=== PATIENT | female | born 1985 | race African-American/Black ===

== ENCOUNTER 2017-03-14 10:59 | Emergency (ER) | payer SELFPAY | END 2017-03-14 11:20 | disposition home or self-care (01) | LOC: MADERS 10:59 | DX: K04.7 Periapical abscess without sinus (principal); K21.9 Gastro-esophageal reflux disease without esophagitis; F17.210 Nicotine dependence, cigarettes, uncomplicated | CPT/HCPCS: 99282 ==

== ENCOUNTER 2017-03-31 11:20 | Emergency (ER) | payer SELFPAY ==
[2017-03-31] MEDS ORDERED: AMOXicillin 250 MG CAP ONE (12:05)
[2017-03-31] MEDS ORDERED: Ondansetron ODT 4 MG TAB ONE (12:05)
[2017-03-31] MEDS ORDERED: Ibuprofen 800 MG TAB ONE (12:05)
[2017-03-31] MEDS ORDERED: HYDROcodone/Acetaminophen 5/325 mg Tablet ONE (12:05)
== END 2017-03-31 12:20 | disposition home or self-care (01) ==
LOC: MADERS 11:20
DX: K04.7 Periapical abscess without sinus (principal); M27.2 Inflammatory conditions of jaws; K02.9 Dental caries, unspecified; K21.9 Gastro-esophageal reflux disease without esophagitis; F17.210 Nicotine dependence, cigarettes, uncomplicated
CPT/HCPCS: 99282; Q0162

== ENCOUNTER 2017-06-09 09:49 | Emergency (ER) | payer SELFPAY ==
[2017-06-09] MEDS ORDERED: Lidocaine 1% 20 ML MDV ONE (10:11)
[2017-06-09] MEDS ORDERED: cefTRIAXone\\ROCEPHIN 1 GM VIAL ONE (10:11)
[2017-06-09] MEDS ORDERED: Ketorolac Tromethamine 60 MG/2 ML VIAL ONE (10:11)
== END 2017-06-09 10:40 | disposition home or self-care (01) ==
LOC: MADERS 09:49
DX: K04.7 Periapical abscess without sinus (principal); K03.81 Cracked tooth; K21.9 Gastro-esophageal reflux disease without esophagitis; F17.210 Nicotine dependence, cigarettes, uncomplicated
CPT/HCPCS: 96372; J0696; J1885; J2001

== ENCOUNTER 2017-07-21 07:05 | Emergency (ER) | payer SELFPAY ==
[2017-07-21] MEDS ORDERED: Ketorolac Tromethamine 30 MG/ML VIAL ONE (07:33)
--- NOTE | 2017-07-21 07:57 | RAD ---
CHEST PA AND LATERAL: HISTORY: A 31-year-old female with chest pain. COMPARISON: 07/11/15. FINDINGS: Heart size is normal. The lungs are clear. IMPRESSION: No acute intrathoracic disease. POS: [facility]
[2017-07-21 08:23] LABS: BHCG - Serum Negative (NEGATIVE); Pregs Control Background? CLEAR/WHITE (CLR/WHITE); Pregs Control Bar Appear? YES (CONTROL BAR)
== END 2017-07-21 08:10 | disposition home or self-care (01) ==
LOC: MADERS 07:05
DX: S16.1XXA Strain of muscle, fascia and tendon at neck level, initial encounter (principal); M62.838 Other muscle spasm; K21.9 Gastro-esophageal reflux disease without esophagitis; X58.XXXA Exposure to other specified factors, initial encounter
CPT/HCPCS: 71020; 84703; 93005; 96374; J1885

== ENCOUNTER 2017-08-27 09:17 | Emergency (ER) | payer SELFPAY ==
[2017-08-27] MEDS ORDERED: Naproxen 500 MG TAB ONE (09:51)
[2017-08-27] MEDS ORDERED: HYDROcodone/Acetaminophen 10/325 mg Tablet ONE (09:51)
[2017-08-27] MEDS ORDERED: Diazepam 5 MG TAB ONE (09:51)
== END 2017-08-27 10:55 | disposition home or self-care (01) ==
LOC: MADERS 09:17
DX: M62.838 Other muscle spasm (principal); K21.9 Gastro-esophageal reflux disease without esophagitis; F17.210 Nicotine dependence, cigarettes, uncomplicated
CPT/HCPCS: 99283

== ENCOUNTER 2017-10-13 10:31 | Emergency (ER) | payer SELFPAY ==
[~2017-10-13 10:31] MED LIST: Sodium Chloride 0.9% 1,000 ML BAG ONE
[2017-10-13] MEDS ORDERED: Ondansetron HCl/PF 4 MG/2 ML Vial ONE (10:53)
[2017-10-13 11:12] LABS: Amphetamine Not Detected (NotDetected); Barbiturates Screen Not Detected (NotDetected); Benzodiazepine Screen Not Detected (NotDetected); Cocaine Metabolite Screen Not Detected (NotDetected); Medtox Control Line Valid? VALID (VALID); Methadone Not Detected (NotDetected); Methamphetamine Not Detected (NotDetected); Opiate Screen Not Detected (NotDetected); Oxycodone Screen Not Detected (NotDetected); Phencyclidine (PCP) Not Detected (NotDetected); THC/Cannabinoid Screen Not Detected (NotDetected); Tricyclic Screen Not Detected (NotDetected)
== END 2017-10-13 11:15 | disposition home or self-care (01) ==
LOC: MADERS 10:31
DX: Z53.21 Procedure and treatment not carried out due to patient leaving prior to being seen by health care provider (principal)
CPT/HCPCS: 80306; J2405; J7050

== ENCOUNTER 2017-10-13 11:40 | Emergency (ER) | payer SELFPAY ==
[2017-10-13] MEDS ORDERED: Ondansetron HCl/PF 4 MG/2 ML Vial ONE (12:07)
[2017-10-13 12:36] LABS: Pregnancy Test - Urine (BHCG) Negative (Negative); Pregu Control Background? CLEAR/WHITE (CLR/WHITE); Pregu Control Bar Appear? YES (CONTROL BAR); Specific Gravity 1.032 (1.002-1.036)
[2017-10-13 12:50] LABS: Hemoglobin 13.7 g/dL (12.0-16.0); Lymphocytes 11 % (21-51); MDiff Complete? YES; Mean Corpuscular HGB CONC 32.1 g/dL (32.0-36.0); Mean Corpuscular Hemoglobin 31.3 pg (27.0-31.0); Mean Corpuscular Volume 97.6 fl (81.0-99.0); Mean Platelet Volume 6.6 fL (7.4-10.4); Monocytes 2 % (0-10); Neutrophil 87 % (42-75); PLT Morphology Comment Appears Adequate; Platelet Count 302 thou/uL (130-400); RBC Distribution Width 14.7 % (11.5-14.5); Red Blood Cell (RBC) Count 4.36 mill/uL (4.20-5.40); White Blood Cell (WBC) Count 13.1 thou/uL (4.8-10.8)
[2017-10-13] MEDS ORDERED: Metoclopramide HCl 10 MG/2 ML VIAL ONE (12:55)
[2017-10-13] MEDS ORDERED: diphenhydrAMINE 50 MG/ML VIAL ONE (12:55)
[2017-10-13 12:57] LABS: ALT (SGPT) 19 U/L (8-55); AST (SGOT) 19 U/L (5-34); Albumin 4.8 g/dL (3.5-5.0); Alkaline Phosphatase 73 U/L (40-150); Anion Gap 21 mmol/L (10-20); BUN (Urea Nitrogen) 8 mg/dL (7.0-18.7); Bilirubin, Total 0.6 mg/dL (0.2-1.2); Calc. Creatinine Clearance 0 mL/min (70-130); Calcium 10.2 mg/dL (7.8-10.44); Carbon Dioxide 23 mmol/L (22-29); Chloride 107 mmol/L (98-107); Estimated GFR-MDRD Greater than 90; Globulin 3.8 g/dL (2.4-3.5); Glucose 131 mg/dL (70-105); Lipase 12 U/L (8-78); Potassium 3.8 mmol/L (3.5-5.1); Protein, Total 8.6 g/dL (6.0-8.3); Sodium 147 mmol/L (136-145)
[2017-10-13 12:58] LABS: CKMB 0.9 ng/mL (0-6.6); Troponin I Less than 0.010 ng/mL (< 0.028)
== END 2017-10-13 14:00 | disposition home or self-care (01) ==
LOC: MADERS 11:40
DX: R11.2 Nausea with vomiting, unspecified (principal); K21.9 Gastro-esophageal reflux disease without esophagitis; F17.210 Nicotine dependence, cigarettes, uncomplicated
CPT/HCPCS: 36415; 80053; 81025; 82553; 83690; 84443; 84484; 85025; 93005; 96361; 96374; 96375; J1200; J2405; J2765; J7050

== ENCOUNTER 2017-10-15 05:03 | Emergency (ER) | payer SELFPAY ==
[2017-10-15] MEDS ORDERED: Promethazine HCl 25 MG/ML VIAL ONE (05:42)
[2017-10-15] MEDS ORDERED: Ketorolac Tromethamine 30 MG/ML VIAL ONE (05:42)
[2017-10-15] MEDS ORDERED: Dicyclomine 10 MG CAP ONE (06:07)
[2017-10-15 06:36] LABS: Acetaminophen Less than 6.0 mcg/mL (10.0-30.0); Alcohol Less than 10 mg/dL (Less than 10); Anion Gap 25 mmol/L (10-20); Salicylate Less than 8.0 mg/dL (15.0-30.0)
[2017-10-15 06:49] LABS: ALT (SGPT) 97 U/L (8-55); AST (SGOT) 274 U/L (5-34); Albumin 4.9 g/dL (3.5-5.0); Alkaline Phosphatase 80 U/L (40-150); BUN (Urea Nitrogen) 29 mg/dL (7.0-18.7); Bilirubin, Total 1.1 mg/dL (0.2-1.2); Calc. Creatinine Clearance 0 mL/min (70-130); Calcium 10.2 mg/dL (7.8-10.44); Carbon Dioxide 17 mmol/L (22-29); Chloride 102 mmol/L (98-107); Estimated GFR-MDRD 38; Globulin 4.6 g/dL (2.4-3.5); Glucose 107 mg/dL (70-105); Hemoglobin 15.7 g/dL (12.0-16.0); Mean Corpuscular HGB CONC 32.7 g/dL (32.0-36.0); Mean Corpuscular Hemoglobin 31.4 pg (27.0-31.0); Mean Corpuscular Volume 95.9 fl (81.0-99.0); Mean Platelet Volume 6.4 fL (7.4-10.4); Platelet Count 303 thou/uL (130-400); Potassium 3.8 mmol/L (3.5-5.1); Protein, Total 9.5 g/dL (6.0-8.3); RBC Distribution Width 14.2 % (11.5-14.5); Red Blood Cell (RBC) Count 5.01 mill/uL (4.20-5.40); Sodium 140 mmol/L (136-145)
[2017-10-15 06:49] LABS: Bilirubin Negative (Negative); Blood, Urine Large (Negative); Clarity Cloudy (Clear); Glucose, Urine (Dipstick) Negative (Negative); Leukocyte Negative (Negative); Nitrite Negative (Negative); Protein, Urine (Dipstick) > or equal to 300 mg/dL (Neg-Trace); pH, Urine 5.5 (5.0-9.0)
[2017-10-15 06:50] LABS: Band 6 % (5-11)
[2017-10-15 06:51] LABS: Lymphocytes 11 % (21-51); Monocytes 3 % (0-10); Neutrophil 80 % (42-75)
[2017-10-15 07:14] LABS: Amphetamine Not Detected (NotDetected); Bacteria/HPF 3+ HPF (None Seen); Barbiturates Screen Not Detected (NotDetected); Benzodiazepine Screen Not Detected (NotDetected); Cocaine Metabolite Screen Not Detected (NotDetected); Hyaline Casts/LPF 7-10 HYALINE CAST LPF (0-3 Hyaline); Medtox Control Line Valid? VALID (VALID); Methadone Not Detected (NotDetected); Methamphetamine Detected (NotDetected); Opiate Screen Not Detected (NotDetected); Oxycodone Screen Not Detected (NotDetected); Phencyclidine (PCP) Not Detected (NotDetected); RBC/HPF GREATER THAN 50-TNTC HPF (0-3); THC/Cannabinoid Screen Not Detected (NotDetected); Tricyclic Screen Not Detected (NotDetected); WBC/HPF 21-50 HPF (0-3)
[2017-10-15] MEDS ORDERED: Sodium Chloride 0.9% 1,000 ML BAG ONE (07:25)
[2017-10-15] MEDS ORDERED: Sulfameth/Trimethoprim DS 800-160mg TAB ONE (07:52)
== END 2017-10-15 08:00 | disposition home or self-care (01) ==
LOC: MADERS 05:03
DX: E86.0 Dehydration (principal); N39.0 Urinary tract infection, site not specified; K21.9 Gastro-esophageal reflux disease without esophagitis; F17.210 Nicotine dependence, cigarettes, uncomplicated; Z79.899 Other long term (current) drug therapy
CPT/HCPCS: 36415; 80053; 80306; 80307; 81001; 83605; 85025; 87086; 93005; 96361; 96374; 96375; J1885; J2550; J7050

== ENCOUNTER 2017-10-17 17:13 | Emergency (ER) | payer SELFPAY ==
[2017-10-17] MEDS ORDERED: Dexamethasone 4 MG TAB ONE (18:43)
[2017-10-17] MEDS ORDERED: Ibuprofen 800 MG TAB ONE (18:43)
[2017-10-17] MEDS ORDERED: HYDROcodone/Acetaminophen 5/325 mg Tablet ONE (18:43)
--- NOTE | 2017-10-17 20:08 | RAD ---
LEFT KNEE RADIOGRAPHS FOUR VIEWS 10/17/17 PROVIDED CLINICAL HISTORY: Left knee pain. FINDINGS: There is no evidence for fracture or other acute osseous abnormality. If there is persistent clinical concern, conservative management and followup imaging are advised. IMPRESSION: As above. POS: [facility]
== END 2017-10-17 18:55 | disposition home or self-care (01) ==
LOC: MADERS 17:13
DX: S89.92XA Unspecified injury of left lower leg, initial encounter (principal); K21.9 Gastro-esophageal reflux disease without esophagitis; F17.210 Nicotine dependence, cigarettes, uncomplicated; Z79.899 Other long term (current) drug therapy; X50.1XXA Overexertion from prolonged static or awkward postures, initial encounter; Y93.01 Activity, walking, marching and hiking
CPT/HCPCS: J8540

== ENCOUNTER 2017-11-30 00:57 | Emergency (ER) | payer SELFPAY | END 2017-11-30 01:31 | disposition home or self-care (01) | LOC: MADERS 00:57 | DX: J20.9 Acute bronchitis, unspecified (principal); K21.9 Gastro-esophageal reflux disease without esophagitis; F17.210 Nicotine dependence, cigarettes, uncomplicated | CPT/HCPCS: 99283 ==

== ENCOUNTER 2018-01-18 13:03 | Emergency (ER) | payer SELFPAY ==
[2018-01-18] MEDS ORDERED: Aspirin 325 MG TAB ONE (14:00)
[2018-01-18 14:05] LABS: Amphetamine Not Detected (NotDetected); Barbiturates Screen Not Detected (NotDetected); Benzodiazepine Screen Detected (NotDetected); Cocaine Metabolite Screen Not Detected (NotDetected); Medtox Control Line Valid? VALID (VALID); Methadone Not Detected (NotDetected); Methamphetamine Not Detected (NotDetected); Opiate Screen Not Detected (NotDetected); Oxycodone Screen Not Detected (NotDetected); Phencyclidine (PCP) Not Detected (NotDetected); THC/Cannabinoid Screen Not Detected (NotDetected); Tricyclic Screen Not Detected (NotDetected)
[2018-01-18 14:07] LABS: Bilirubin Negative (Negative); Blood, Urine Negative (Negative); Clarity Clear (Clear); Glucose, Urine (Dipstick) Negative (Negative); Leukocyte Negative (Negative); Nitrite Negative (Negative); Protein, Urine (Dipstick) 100 mg/dL (Neg-Trace); Urobilinogen 0.2 mg/dL (0.2-1.0)
[2018-01-18 14:08] LABS: Bacteria/HPF None Seen HPF (None Seen); Other Microscopic Description C&S SET UP; RBC/HPF 0-3 HPF (0-3); Squamous Epithelial 0-3 HPF (0-3)
[2018-01-18 14:22] LABS: Band 2 % (5-11); Hemoglobin 12.7 g/dL (12.0-16.0); Lymphocytes 24 % (21-51); MDiff Complete? YES; Mean Corpuscular HGB CONC 31.6 g/dL (32.0-36.0); Mean Corpuscular Hemoglobin 30.2 pg (27.0-31.0); Mean Corpuscular Volume 95.7 fl (81.0-99.0); Mean Platelet Volume 5.8 fL (7.4-10.4); Monocytes 3 % (0-10); Neutrophil 71 % (42-75); Platelet Count 363 thou/uL (130-400); RBC Distribution Width 15.7 % (11.5-14.5); Red Blood Cell (RBC) Count 4.21 mill/uL (4.20-5.40); White Blood Cell (WBC) Count 11.4 thou/uL (4.8-10.8)
[2018-01-18 14:35] LABS: CKMB 0.6 ng/mL (0-6.6); Troponin I Less than 0.010 ng/mL (< 0.028)
[2018-01-18 14:39] LABS: ALT (SGPT) 11 U/L (8-55); AST (SGOT) 16 U/L (5-34); Acetaminophen Less than 6.0 mcg/mL (10.0-30.0); Albumin 4.4 g/dL (3.5-5.0); Alcohol Less than 10 mg/dL (Less than 10); Alkaline Phosphatase 64 U/L (40-150); Anion Gap 16 mmol/L (10-20); BUN (Urea Nitrogen) 8 mg/dL (7.0-18.7); Bilirubin, Total 0.9 mg/dL (0.2-1.2); CK (CPK) 83 U/L (29-168); Calc. Creatinine Clearance 0 mL/min (70-130); Calcium 9.6 mg/dL (7.8-10.44); Carbon Dioxide 21 mmol/L (22-29); Chloride 107 mmol/L (98-107); Estimated GFR-MDRD Greater than 90; Globulin 3.2 g/dL (2.4-3.5); Glucose 143 mg/dL (70-105); Protein, Total 7.6 g/dL (6.0-8.3); Salicylate Less than 8.0 mg/dL (15.0-30.0); Sodium 140 mmol/L (136-145)
--- NOTE | 2018-01-18 14:59 | RAD ---
AP VIEW CHEST: 01/18/2018 HISTORY: Altered mental status. COMPARISON: 07/11/2015 FINDINGS: AP view chest demonstrates the lungs to be well aerated. No evidence of active intrathoracic disease is seen. No evidence of effusions, pneumonia, or pneumothorax is seen. IMPRESSION: Unremarkable AP view chest. POS: [facility]
[2018-01-18] MEDS ORDERED: Ondansetron HCl/PF 4 MG/2 ML Vial ONE (17:17)
== END 2018-01-18 18:08 | disposition home or self-care (01) ==
LOC: MADERS 13:03
DX: E86.0 Dehydration (principal); N39.0 Urinary tract infection, site not specified; K21.9 Gastro-esophageal reflux disease without esophagitis; F17.210 Nicotine dependence, cigarettes, uncomplicated
CPT/HCPCS: 36415; 71045; 80053; 80306; 80307; 81001; 82553; 83880; 84484; 85025; 86140; 87086; 93005; 94760; 96361; 96374; J2405; J7050

== ENCOUNTER 2018-02-25 03:18 | Emergency (ER) | payer SELFPAY ==
[2018-02-25 04:19] LABS: Bilirubin Small (Negative); Blood, Urine Negative (Negative); Clarity Clear (Clear); Glucose, Urine (Dipstick) Negative (Negative); Leukocyte Negative (Negative); Nitrite Negative (Negative); Pregnancy Test - Urine (BHCG) Negative (Negative); Pregu Control Background? CLEAR/WHITE (CLR/WHITE); Pregu Control Bar Appear? YES (CONTROL BAR); Protein, Urine (Dipstick) 30 mg/dL (Neg-Trace); Specific Gravity 1.025 (1.002-1.036); Specific Gravity, Urine 1.025 (1.005-1.030); Urobilinogen 0.2 mg/dL (0.2-1.0)
[2018-02-25 04:24] LABS: Amphetamine Not Detected (NotDetected); Bacteria/HPF None Seen HPF (None Seen); Barbiturates Screen Not Detected (NotDetected); Benzodiazepine Screen Not Detected (NotDetected); Cocaine Metabolite Screen Not Detected (NotDetected); Medtox Control Line Valid? VALID (VALID); Methadone Not Detected (NotDetected); Methamphetamine Not Detected (NotDetected); Opiate Screen Not Detected (NotDetected); Oxycodone Screen Not Detected (NotDetected); Phencyclidine (PCP) Not Detected (NotDetected); RBC/HPF 0-3 HPF (0-3); Squamous Epithelial 0-3 HPF (0-3); THC/Cannabinoid Screen Not Detected (NotDetected); Tricyclic Screen Not Detected (NotDetected); WBC/HPF 0-3 HPF (0-3)
[2018-02-25 04:25] LABS: Crystals/HPF 3+ CA OXALATE HPF (Negative)
== END 2018-02-25 04:35 | disposition home or self-care (01) ==
LOC: MADERS 03:18
DX: F31.9 Bipolar disorder, unspecified (principal); K21.9 Gastro-esophageal reflux disease without esophagitis; F17.210 Nicotine dependence, cigarettes, uncomplicated; F20.9 Schizophrenia, unspecified
CPT/HCPCS: 80306; 81003; 81015; 81025; 99284

== ENCOUNTER 2018-02-26 13:25 | Emergency (ER) | payer SELFPAY ==
[2018-02-26] MEDS ORDERED: Ibuprofen 600 MG TAB ONE (14:52)
[2018-02-26] MEDS ORDERED: Benzonatate 100 MG CAP ONE (14:52)
== END 2018-02-26 15:03 | disposition home or self-care (01) ==
LOC: MADERS 13:25
DX: S29.012A Strain of muscle and tendon of back wall of thorax, initial encounter (principal); J06.9 Acute upper respiratory infection, unspecified; K21.9 Gastro-esophageal reflux disease without esophagitis; F31.9 Bipolar disorder, unspecified; F20.9 Schizophrenia, unspecified; F17.210 Nicotine dependence, cigarettes, uncomplicated; X58.XXXA Exposure to other specified factors, initial encounter
CPT/HCPCS: 99283

== ENCOUNTER 2018-03-06 15:15 | Emergency (ER) | payer SELFPAY ==
[~2018-03-06 15:15] MED LIST changes: +Iopamidol 370 76% 100 ML VIAL ONE
[2018-03-06] MEDS ORDERED: Ondansetron HCl/PF 4 MG/2 ML Vial ONE (17:11)
[2018-03-06] MEDS ORDERED: Pantoprazole 40 MG VIAL ONE (17:11)
[2018-03-06 17:36] LABS: ALT (SGPT) 16 U/L (8-55); AST (SGOT) 19 U/L (5-34); Albumin 4.5 g/dL (3.5-5.0); Alcohol Less than 10 mg/dL (Less than 10); Alkaline Phosphatase 62 U/L (40-150); Anion Gap 18 mmol/L (10-20); BUN (Urea Nitrogen) 10 mg/dL (7.0-18.7); Bilirubin, Total 0.8 mg/dL (0.2-1.2); CK (CPK) 80 U/L (29-168); Calc. Creatinine Clearance 0 mL/min (70-130); Calcium 9.7 mg/dL (7.8-10.44); Carbon Dioxide 19 mmol/L (22-29); Chloride 108 mmol/L (98-107); Estimated GFR-MDRD 89; Globulin 3.4 g/dL (2.4-3.5); Glucose 126 mg/dL (70-105); Lipase 9 U/L (8-78); Potassium 3.9 mmol/L (3.5-5.1); Protein, Total 7.9 g/dL (6.0-8.3); Sodium 141 mmol/L (136-145)
[2018-03-06 17:40] LABS: Band 5 % (5-11); Hemoglobin 13.8 g/dL (12.0-16.0); Lymphocytes 10 % (21-51); MDiff Complete? YES; Mean Corpuscular HGB CONC 33.5 g/dL (32.0-36.0); Mean Corpuscular Hemoglobin 30.6 pg (27.0-31.0); Mean Corpuscular Volume 91.5 fl (81.0-99.0); Mean Platelet Volume 5.5 fL (7.4-10.4); Monocytes 5 % (0-10); Neutrophil 80 % (42-75); PLT Morphology Comment Appears Adequate; Platelet Count 339 thou/uL (130-400); RBC Distribution Width 15.9 % (11.5-14.5); White Blood Cell (WBC) Count 13.8 thou/uL (4.8-10.8)
[2018-03-06 17:51] LABS: CKMB 0.7 ng/mL (0-6.6); Troponin I Less than 0.010 ng/mL (< 0.028)
[2018-03-06 19:37] LABS: Bilirubin Negative (Negative); Blood, Urine Negative (Negative); Glucose, Urine (Dipstick) Negative (Negative); Leukocyte Negative (Negative); Nitrite Negative (Negative); Protein, Urine (Dipstick) 100 mg/dL (Neg-Trace); Urobilinogen 0.2 mg/dL (0.2-1.0); pH, Urine 5.5 (5.0-9.0)
[2018-03-06 19:39] LABS: Clarity Hazy (Clear); Pregnancy Test - Urine (BHCG) Negative (Negative); Pregu Control Background? CLEAR/WHITE (CLR/WHITE); Pregu Control Bar Appear? YES (CONTROL BAR)
[2018-03-06 19:43] LABS: Bacteria/HPF 2+ HPF (None Seen); RBC/HPF 0-3 HPF (0-3); WBC/HPF 0-3 HPF (0-3)
[2018-03-06 19:58] LABS: Amphetamine Not Detected (NotDetected); Benzodiazepine Screen Not Detected (NotDetected); Cocaine Metabolite Screen Detected (NotDetected); Methadone Not Detected (NotDetected); Methamphetamine Not Detected (NotDetected); Opiate Screen Not Detected (NotDetected); Phencyclidine (PCP) Not Detected (NotDetected); THC/Cannabinoid Screen Not Detected (NotDetected); Tricyclic Screen Not Detected (NotDetected)
[2018-03-06 19:59] LABS: Barbiturates Screen Not Detected (NotDetected); Medtox Control Line Valid? VALID (VALID); Oxycodone Screen Not Detected (NotDetected)
--- NOTE | 2018-03-06 22:07 | CT ---
CT OF ABDOMEN AND PELVIS PERFORMED WITH CONTRAST ENHANCEMENT: 03/06/18 HISTORY: Abdominal pain, elevated white count and lactic acid. History of appendectomy, cholecystectomy and C- section. COMPARISON: 02/10/14 study. The lung bases are clear of any infiltrative process. Liver shows a small hypodensity within the right lobe statistically most likely a tiny cyst. The sple en and pancreas regions are unremarkable. Gallbladder has been removed. There is some slight intrahep atic ductal prominence which is probably related to the cholecystectomy. Right and left adrenal glands and right and left kidneys are normal in size. There is no significant periaortic or mesenteric lymphadenopathy. No signs of bowel obstruction or bowel wall thickening. CT OF PELVIS PERFORMED WITH CONTRAST ENHANCEMENT: Endometrium is thickened. No evidence of adenopathy, mass or free fluid. The appendix is not identifi ed compatible with the history of appendectomy. What appears to be some suture material in the region of the cecum. IMPRESSION: Stable overall examination. Postop cholecystectomy change. No acute intra-abdominal process. POS: [facility]
== END 2018-03-06 21:46 | disposition home or self-care (01) ==
LOC: MADERS 15:15
DX: F14.10 Cocaine abuse, uncomplicated (principal); E86.0 Dehydration; R11.2 Nausea with vomiting, unspecified; F31.9 Bipolar disorder, unspecified; F20.9 Schizophrenia, unspecified; F17.210 Nicotine dependence, cigarettes, uncomplicated; K21.9 Gastro-esophageal reflux disease without esophagitis
CPT/HCPCS: 36415; 74177; 80053; 80306; 80307; 81003; 81015; 81025; 82150; 82553; 83605; 83690; 84484; 85025; 87086; 96361; 96374; C9113; J2405; J7050

== ENCOUNTER 2018-03-08 08:18 | Emergency (ER) | payer SELFPAY ==
[~2018-03-08 08:18] MED LIST changes: -Iopamidol 370 76% 100 ML VIAL ONE; -Sodium Chloride 0.9% 1,000 ML BAG ONE; +Sterile Water 10 ML VIAL ONE
[2018-03-08] MEDS ORDERED: Ziprasidone 20 MG VIAL ONE (08:44)
[2018-03-08 09:09] LABS: Acetaminophen Less than 6.0 mcg/mL (10.0-30.0); Alcohol Less than 10 mg/dL (Less than 10); Lipase 16 U/L (8-78); Salicylate Less than 8.0 mg/dL (15.0-30.0)
[2018-03-08 09:11] LABS: Anion Gap 27 mmol/L (10-20)
[2018-03-08 09:15] LABS: Bilirubin Large (Negative); Blood, Urine Moderate (Negative); Clarity Clear (Clear); Glucose, Urine (Dipstick) Negative (Negative); Leukocyte Negative (Negative); Nitrite Negative (Negative); Protein, Urine (Dipstick) > or equal to 300 mg/dL (Neg-Trace)
[2018-03-08 09:30] LABS: Specific Gravity, Urine 1.037 (1.002-1.036)
[2018-03-08 09:34] LABS: BHCG - Serum Negative (NEGATIVE); Pregs Control Background? CLEAR/WHITE (CLR/WHITE); Pregs Control Bar Appear? YES (CONTROL BAR)
[2018-03-08 09:35] LABS: Amphetamine Not Detected (NotDetected); Barbiturates Screen Not Detected (NotDetected); Benzodiazepine Screen Not Detected (NotDetected); Cocaine Metabolite Screen Not Detected (NotDetected); Medtox Control Line Valid? VALID (VALID); Methadone Not Detected (NotDetected); Methamphetamine Detected (NotDetected); Opiate Screen Not Detected (NotDetected); Oxycodone Screen Not Detected (NotDetected); Phencyclidine (PCP) Not Detected (NotDetected); THC/Cannabinoid Screen Not Detected (NotDetected); Tricyclic Screen Not Detected (NotDetected)
[2018-03-08 09:37] LABS: Hemoglobin 16.9 g/dL (12.0-16.0); Red Blood Cell (RBC) Count 5.75 mill/uL (4.20-5.40); White Blood Cell (WBC) Count 13.4 thou/uL (4.8-10.8)
[2018-03-08 09:38] LABS: #Basophils 0.1 thou/uL (0.0-0.2); #Monocytes 0.8 thou/uL (0.11-0.59); #Neutrophils 10.5 thou/uL (1.40-6.50); %Basophils 0.9 % (0.0-1.0); %Eosinophils 0.1 % (0.0-10.0); %Lymphocytes 14.8 % (21.0-51.0); %Monocytes 5.7 % (0.0-10.0); %Neutrophils 78.5 % (42.0-75.0); Mean Corpuscular HGB CONC 32.4 g/dL (32.0-36.0); Mean Corpuscular Hemoglobin 29.3 pg (27.0-31.0); Mean Corpuscular Volume 90.6 fL (81.0-99.0); Mean Platelet Volume 6.3 fL (7.4-10.4); Platelet Count 359 thou/uL (130-400); RBC Distribution Width 15.7 % (11.5-14.5)
[2018-03-08 09:42] LABS: Albumin 5.8 g/dL (3.5-5.0); BUN (Urea Nitrogen) 19 mg/dL (7.0-18.7); Bilirubin, Total 1.6 mg/dL (0.2-1.2); Calc. Creatinine Clearance 0 mL/min (70-130); Calcium 11.9 mg/dL (7.8-10.44); Carbon Dioxide 16 mmol/L (22-29); Chloride 96 mmol/L (98-107); Estimated GFR-MDRD 34; Glucose 121 mg/dL (70-105); Potassium 3.7 mmol/L (3.5-5.1); Protein, Total 10.8 g/dL (6.0-8.3); Sodium 135 mmol/L (136-145)
[2018-03-08 09:43] LABS: ALT (SGPT) 26 U/L (8-55); AST (SGOT) 26 U/L (5-34); Alkaline Phosphatase 85 U/L (40-150)
== END 2018-03-08 10:29 | disposition left against medical advice (07) ==
LOC: MADERS 08:18
DX: F12.10 Cannabis abuse, uncomplicated (principal); F17.210 Nicotine dependence, cigarettes, uncomplicated; F31.9 Bipolar disorder, unspecified; F20.9 Schizophrenia, unspecified
CPT/HCPCS: 80053; 80306; 80307; 81001; 82150; 83690; 84703; 85025; 85652; 87040; 87086; 96372; A4216; J3486

== ENCOUNTER 2018-03-08 20:09 | Emergency (ER) | payer SELFPAY ==
[~2018-03-08 20:09] MED LIST changes: +Sodium Chloride 0.9% 1,000 ML BAG ONE; -Sterile Water 10 ML VIAL ONE
--- NOTE | 2018-03-08 20:54 | RAD ---
RIGHT ELBOW TWO VIEWS: 03/08/18 HISTORY: Patient thinks a needle broke off in her right elbow. There is no fracture or joint effusion. No radiopaque foreign bodies in the region of the elbow. A sm all radiopaque density in the proximal forearm is probably on the skin surface. IMPRESSION: No evidence of any radiopaque needle. POS: [facility]
[2018-03-08] MEDS ORDERED: Lorazepam 1 MG TAB ONE (21:03)
[2018-03-08] MEDS ORDERED: Haloperidol Lactate 5 MG/ML VIAL ONE (21:04)
[2018-03-08] MEDS ORDERED: Famotidine In NaCl 20 mg/50 ml Premix Bag ONE (21:04)
[2018-03-08] MEDS ORDERED: Ondansetron HCl/PF 4 MG/2 ML Vial ONE (21:04)
[2018-03-08 21:14] LABS: #Basophils 0.2 thou/uL (0.0-0.2); #Monocytes 1.2 thou/uL (0.11-0.59); #Neutrophils 11.9 thou/uL (1.40-6.50); %Basophils 0.9 % (0.0-1.0); %Lymphocytes 18.7 % (21.0-51.0); %Monocytes 7.1 % (0.0-10.0); %Neutrophils 73.3 % (42.0-75.0); Hemoglobin 17.4 g/dL (12.0-16.0); Mean Corpuscular HGB CONC 32.6 g/dL (32.0-36.0); Mean Corpuscular Hemoglobin 29.4 pg (27.0-31.0); Mean Corpuscular Volume 90.3 fl (81.0-99.0); Platelet Count 391 thou/uL (130-400); RBC Distribution Width 15.5 % (11.5-14.5); Red Blood Cell (RBC) Count 5.92 mill/uL (4.20-5.40); White Blood Cell (WBC) Count 16.2 thou/uL (4.8-10.8)
[2018-03-08] MEDS ORDERED: Ziprasidone 20 MG VIAL ONE (21:17)
[2018-03-08] MEDS ORDERED: Sterile Water 10 ML ONE (21:17)
[2018-03-08 21:31] LABS: Acetaminophen Less than 6.0 mcg/mL (10.0-30.0); Alcohol Less than 10 mg/dL (Less than 10); Salicylate Less than 8.0 mg/dL (15.0-30.0)
[2018-03-08 21:44] LABS: Calcium 11.7 mg/dL (7.8-10.44); Potassium 3.9 mmol/L (3.5-5.1)
== END 2018-03-08 22:54 | disposition home or self-care (01) ==
LOC: MADERS 20:09
DX: F14.10 Cocaine abuse, uncomplicated (principal); F12.10 Cannabis abuse, uncomplicated; E86.0 Dehydration; F31.9 Bipolar disorder, unspecified; F20.9 Schizophrenia, unspecified; F17.210 Nicotine dependence, cigarettes, uncomplicated; K21.9 Gastro-esophageal reflux disease without esophagitis
CPT/HCPCS: 36415; 80307; 96372; 96374; 96375; A4216; J1630; J2405; J3486; J7050

== ENCOUNTER 2018-03-10 05:23 | Emergency (ER) | payer SELFPAY ==
[2018-03-10 06:58] LABS: Amphetamine Not Detected (NotDetected); Cocaine Metabolite Screen Not Detected (NotDetected); Methamphetamine Not Detected (NotDetected); Opiate Screen Not Detected (NotDetected); Phencyclidine (PCP) Not Detected (NotDetected); THC/Cannabinoid Screen Not Detected (NotDetected)
[2018-03-10 06:59] LABS: Barbiturates Screen Not Detected (NotDetected); Benzodiazepine Screen Detected (NotDetected); Bilirubin Small (Negative); Blood, Urine Small (Negative); Glucose, Urine (Dipstick) Negative (Negative); Leukocyte Moderate (Negative); Medtox Control Line Valid? VALID (VALID); Methadone Not Detected (NotDetected); Nitrite Negative (Negative); Oxycodone Screen Not Detected (NotDetected); Protein, Urine (Dipstick) 100 mg/dL (Neg-Trace); Specific Gravity, Urine 1.025 (1.005-1.030); Tricyclic Screen Not Detected (NotDetected); Urobilinogen 0.2 mg/dL (0.2-1.0)
[2018-03-10 07:07] LABS: Clarity Hazy (Clear)
[2018-03-10 07:08] LABS: Bacteria/HPF 3+ HPF (None Seen)
[2018-03-10 07:14] LABS: Acetaminophen Less than 6.0 mcg/mL (10.0-30.0); Alcohol Less than 10 mg/dL (Less than 10); Salicylate Less than 8.0 mg/dL (15.0-30.0)
== END 2018-03-10 07:07 | disposition left against medical advice (07) ==
LOC: MADERS 05:23
DX: Z53.21 Procedure and treatment not carried out due to patient leaving prior to being seen by health care provider (principal)
CPT/HCPCS: 36415; 80306; 80307; 81003; 81015

== ENCOUNTER 2018-04-10 13:04 | Emergency (ER) | payer SELFPAY ==
[2018-04-10] MEDS ORDERED: Naproxen 500 MG TAB ONE (14:35)
[2018-04-10] MEDS ORDERED: Ondansetron ODT 4 MG TAB ONE (14:35)
[2018-04-10] MEDS ORDERED: HYDROcodone/Acetaminophen 10/325 mg Tablet ONE (14:35)
== END 2018-04-10 14:48 | disposition home or self-care (01) ==
LOC: MADERS 13:04
DX: T67.5XXA Heat exhaustion, unspecified, initial encounter (principal); F31.9 Bipolar disorder, unspecified; F20.9 Schizophrenia, unspecified; F17.210 Nicotine dependence, cigarettes, uncomplicated; K21.9 Gastro-esophageal reflux disease without esophagitis; X30.XXXA Exposure to excessive natural heat, initial encounter
CPT/HCPCS: 99283; Q0162

== ENCOUNTER 2018-04-13 17:28 | Emergency (ER) | payer SELFPAY ==
[2018-04-13] MEDS ORDERED: HYDROcodone/Acetaminophen 5/325 mg Tablet ONE (17:39)
== END 2018-04-13 17:41 | disposition home or self-care (01) ==
LOC: MADERS 17:28
DX: M54.5 Low back pain (principal); K21.9 Gastro-esophageal reflux disease without esophagitis; F17.210 Nicotine dependence, cigarettes, uncomplicated
CPT/HCPCS: 99283

== ENCOUNTER 2018-04-16 11:10 | Emergency (ER) | payer SELFPAY ==
[2018-04-16] MEDS ORDERED: Ondansetron ODT 4 MG TAB ONE (11:38)
[2018-04-16 12:28] LABS: Bilirubin Negative (Negative); Blood, Urine Negative (Negative); Clarity Clear (Clear); Glucose, Urine (Dipstick) Negative (Negative); Leukocyte Negative (Negative); Nitrite Negative (Negative); Protein, Urine (Dipstick) 100 mg/dL (Neg-Trace); Specific Gravity, Urine 1.025 (1.005-1.030); Urobilinogen 0.2 mg/dL (0.2-1.0)
[2018-04-16 12:33] LABS: Hemoglobin 13.2 g/dL (12.0-16.0); Mean Corpuscular HGB CONC 32.5 g/dL (32.0-36.0); Mean Corpuscular Hemoglobin 30.4 pg (27.0-31.0); Mean Corpuscular Volume 93.7 fl (81.0-99.0); Mean Platelet Volume 5.7 fL (7.4-10.4); Platelet Count 352 thou/uL (130-400); RBC Distribution Width 15.3 % (11.5-14.5); Red Blood Cell (RBC) Count 4.35 mill/uL (4.20-5.40); White Blood Cell (WBC) Count 6.9 thou/uL (4.8-10.8)
[2018-04-16 12:34] LABS: ALT (SGPT) 16 U/L (8-55); AST (SGOT) 22 U/L (5-34); Albumin 4.9 g/dL (3.5-5.0); Alkaline Phosphatase 57 U/L (40-150); Anion Gap 19 mmol/L (10-20); BUN (Urea Nitrogen) 13 mg/dL (7.0-18.7); Bilirubin, Total 0.7 mg/dL (0.2-1.2); Calc. Creatinine Clearance 0 mL/min (70-130); Calcium 10.4 mg/dL (7.8-10.44); Carbon Dioxide 22 mmol/L (22-29); Chloride 105 mmol/L (98-107); Estimated GFR-MDRD 78; Globulin 3.9 g/dL (2.4-3.5); Glucose 108 mg/dL (70-105); Lipase 23 U/L (8-78); Potassium 4.9 mmol/L (3.5-5.1); Protein, Total 8.8 g/dL (6.0-8.3); Sodium 141 mmol/L (136-145)
[2018-04-16 12:36] LABS: CKMB 0.5 ng/mL (0-6.6); Troponin I Less than 0.010 ng/mL (< 0.028)
[2018-04-16 12:44] LABS: Bacteria/HPF Rare-Few HPF (None Seen); RBC/HPF 0-3 HPF (0-3); WBC/HPF 0-3 HPF (0-3)
[2018-04-16 12:56] LABS: Amphetamine Not Detected (NotDetected); Barbiturates Screen Not Detected (NotDetected); Benzodiazepine Screen Not Detected (NotDetected); Cocaine Metabolite Screen Not Detected (NotDetected); Medtox Control Line Valid? VALID (VALID); Methadone Not Detected (NotDetected); Methamphetamine Not Detected (NotDetected); Opiate Screen Not Detected (NotDetected); Oxycodone Screen Not Detected (NotDetected); Phencyclidine (PCP) Not Detected (NotDetected); THC/Cannabinoid Screen Not Detected (NotDetected); Tricyclic Screen Not Detected (NotDetected)
[2018-04-16 13:00] LABS: Anisocytosis SLIGHT = 6-15 cells (100X) (0-5/hpf); Band 1 % (5-11); Eosinophils 1 % (0-10); Lymphocytes 28 % (21-51); MDiff Complete? YES; Manual Diff?? YES; Monocytes 4 % (0-10); Neutrophil 67 % (42-75)
[2018-04-16 13:01] LABS: PLT Morphology Comment Appears Adequate
[2018-04-16] MEDS ORDERED: Pantoprazole 40 MG VIAL ONE (13:21)
[2018-04-16] MEDS ORDERED: Dicyclomine 10 MG CAP ONE (13:31)
[2018-04-16] MEDS ORDERED: Ketorolac Tromethamine 30 MG/ML VIAL ONE (13:31)
[2018-04-16 13:42] LABS: Pregnancy Test - Urine (BHCG) Negative (Negative); Pregu Control Background? CLEAR/WHITE (CLR/WHITE); Pregu Control Bar Appear? YES (CONTROL BAR)
[2018-04-16 13:43] LABS: Specific Gravity 1.025 (1.002-1.036)
== END 2018-04-16 15:17 | disposition home or self-care (01) ==
LOC: MADERS 11:10
DX: N93.8 Other specified abnormal uterine and vaginal bleeding (principal); R11.2 Nausea with vomiting, unspecified; F17.210 Nicotine dependence, cigarettes, uncomplicated; Z79.899 Other long term (current) drug therapy
CPT/HCPCS: 36415; 51701; 80053; 80306; 81003; 81015; 81025; 82553; 83605; 83690; 84484; 85025; 96361; 96374; 96375; A4353; C9113; J1885; J7050; Q0162

== ENCOUNTER 2018-04-17 22:43 | Emergency (ER) | payer SELFPAY ==
[2018-04-17] MEDS ORDERED: Ondansetron HCl/PF 4 MG/2 ML Vial ONE (23:34)
[2018-04-17] MEDS ORDERED: Ketorolac Tromethamine 30 MG/ML VIAL ONE (23:34)
== END 2018-04-17 23:50 | disposition left against medical advice (07) ==
LOC: MADERS 22:43
DX: Z53.21 Procedure and treatment not carried out due to patient leaving prior to being seen by health care provider (principal)
CPT/HCPCS: J1885; J2405

== ENCOUNTER 2018-04-28 16:30 | Emergency (ER) | payer SELFPAY ==
[2018-04-28] MEDS ORDERED: Ibuprofen 800 MG TAB ONE (17:00)
[2018-04-28] MEDS ORDERED: traMADol HCl 50 MG TAB ONE (17:00)
[2018-04-28] MEDS ORDERED: AMOXicillin 250 MG CAP ONE (17:03)
== END 2018-04-28 17:10 | disposition home or self-care (01) ==
LOC: MADERS 16:30
DX: K02.9 Dental caries, unspecified (principal); K21.9 Gastro-esophageal reflux disease without esophagitis; F17.210 Nicotine dependence, cigarettes, uncomplicated; F31.9 Bipolar disorder, unspecified; F20.9 Schizophrenia, unspecified
CPT/HCPCS: 99282

== ENCOUNTER 2018-06-12 15:12 | Emergency (ER) | payer SELFPAY ==
[2018-06-12 15:48] LABS: Bilirubin Negative (Negative); Blood, Urine Large (Negative); Glucose, Urine (Dipstick) Negative (Negative); Leukocyte Negative (Negative); Nitrite Negative (Negative); Protein, Urine (Dipstick) Negative (Neg-Trace); Urobilinogen 0.2 mg/dL (0.2-1.0)
[2018-06-12 15:51] LABS: Bacteria/HPF Rare-Few HPF (None Seen); Clarity Hazy (Clear); Pregnancy Test - Urine (BHCG) Negative (Negative); Pregu Control Background? CLEAR/WHITE (CLR/WHITE); Pregu Control Bar Appear? YES (CONTROL BAR); Squamous Epithelial 0-3 HPF (0-3); WBC/HPF 0-3 HPF (0-3)
[2018-06-12] MEDS ORDERED: HYDROcodone/Acetaminophen 5/325 mg Tablet ONE (16:05)
[2018-06-12] MEDS ORDERED: Ketorolac Tromethamine 60 MG/2 ML VIAL ONE (16:05)
--- NOTE | 2018-06-12 17:04 | CT ---
CT ABDOMEN AND PELVIS NONCONTRAST: HISTORY: Left flank pain. Hematuria. COMPARISON: 03/06/2018 FINDINGS: Each renal collecting system, ureter, and urinary bladder are decompressed without stone evident. La ck of contrast limits evaluation for other abnormalities. The gallbladder is surgically absent. Line ar hyperdensities amongst the bowel in the right lower quadrant are unchanged in appearance and may r epresent postoperative changes. Phleboliths are apparent within the pelvis. No evidence of bowel ob struction. IMPRESSION: No CT evidence of urinary tract obstruction or calcification. POS: [facility]
== END 2018-06-12 16:40 | disposition home or self-care (01) ==
LOC: MADERS 15:12
DX: M54.5 Low back pain (principal); K21.9 Gastro-esophageal reflux disease without esophagitis; F17.210 Nicotine dependence, cigarettes, uncomplicated
CPT/HCPCS: 74176; 81003; 81015; 81025; 96372; J1885

== ENCOUNTER 2018-07-13 12:55 | Emergency (ER) | payer SELFPAY | END 2018-07-13 13:43 | disposition home or self-care (01) | LOC: MADERS 12:55 | DX: M62.830 Muscle spasm of back (principal); F41.9 Anxiety disorder, unspecified; K21.9 Gastro-esophageal reflux disease without esophagitis; F17.210 Nicotine dependence, cigarettes, uncomplicated | CPT/HCPCS: 99283 ==

== ENCOUNTER 2018-07-16 10:19 | Emergency (ER) | payer SELFPAY ==
[2018-07-16] MEDS ORDERED: HYDROcodone/Acetaminophen 10/325 mg Tablet ONE (10:39)
[2018-07-16] MEDS ORDERED: Amoxicillin/Potassium Clav 875 MG TAB ONE (10:40)
[2018-07-16] MEDS ORDERED: predniSONE 20 MG TAB ONE (10:45)
== END 2018-07-16 10:53 | disposition home or self-care (01) ==
LOC: MADERS 10:19
DX: L03.211 Cellulitis of face (principal); L03.213 Periorbital cellulitis; K21.9 Gastro-esophageal reflux disease without esophagitis; F17.210 Nicotine dependence, cigarettes, uncomplicated
CPT/HCPCS: 99283; J7506

== ENCOUNTER 2018-08-09 10:32 | Emergency (ER) | payer SELFPAY ==
[2018-08-09] MEDS ORDERED: predniSONE 20 MG TAB ONE (10:49)
[2018-08-09] MEDS ORDERED: Azithromycin 250 MG TAB ONE (10:49)
== END 2018-08-09 11:00 | disposition home or self-care (01) ==
LOC: MADERS 10:32
DX: J20.9 Acute bronchitis, unspecified (principal)
CPT/HCPCS: 99282; J7506

== ENCOUNTER 2018-08-26 13:59 | Emergency (ER) | payer MEDICAID ==
--- NOTE | 2018-08-26 15:53 | RAD ---
2 VIEW CHEST: Date: 08/26/18 HISTORY: Cough. FINDINGS: Lung pelletier are clear. Heart and mediastinum unremarkable. IMPRESSION: Unremarkable chest. POS: [facility]
== END 2018-08-26 16:01 | disposition home or self-care (01) ==
LOC: MADERS 13:59
DX: J40 Bronchitis, not specified as acute or chronic (principal); F41.9 Anxiety disorder, unspecified; F17.200 Nicotine dependence, unspecified, uncomplicated
CPT/HCPCS: 71046; 87804

== ENCOUNTER 2018-09-23 11:39 | Emergency (ER) | payer MEDICAID, OTHER ==
[2018-09-23] MEDS ORDERED: Sodium Chloride 0.9% 1,000 ML ONE (12:08)
[2018-09-23] MEDS ORDERED: Ketorolac Tromethamine 30 MG/ML VIAL ONE (12:08)
[2018-09-23 12:31] LABS: Anion Gap 20 mmol/L (10-20); BUN (Urea Nitrogen) 20 mg/dL (7.0-18.7); Calc. Creatinine Clearance 0 mL/min (70-130); Calcium 11.2 mg/dL (7.8-10.44); Carbon Dioxide 23 mmol/L (22-29); Chloride 94 mmol/L (98-107); Estimated GFR-MDRD 69; Glucose 68 mg/dL (70-105); Potassium 4.1 mmol/L (3.5-5.1); Sodium 133 mmol/L (136-145)
== END 2018-09-23 13:29 | disposition home or self-care (01) ==
LOC: MADERS 11:39
DX: M54.5 Low back pain (principal); E86.0 Dehydration; F41.9 Anxiety disorder, unspecified; F17.200 Nicotine dependence, unspecified, uncomplicated
CPT/HCPCS: 80048; 96361; 96374; J1885; J7050

== ENCOUNTER 2018-09-24 10:52 | Emergency (ER) | payer OTHER ==
[2018-09-24] MEDS ORDERED: Lorazepam 1 MG TAB ONE (11:30)
== END 2018-09-24 11:45 | disposition home or self-care (01) ==
LOC: MADERS 10:52
DX: F41.0 Panic disorder [episodic paroxysmal anxiety] (principal); F17.210 Nicotine dependence, cigarettes, uncomplicated
CPT/HCPCS: 99283

== ENCOUNTER 2018-10-05 01:54 | Emergency (ER) | payer MEDICAID ==
[2018-10-05] MEDS ORDERED: Midazolam HCl 10 mg/2 ml Vial ONE (02:14)
[2018-10-05] MEDS ORDERED: Sodium Chloride 0.9% 1,000 ML BAG ONE (02:30)
[2018-10-05] MEDS ORDERED: Sodium Chloride 0.9% 100 ML BAG ONE (02:30)
[2018-10-05 02:53] LABS: BHCG - Serum Negative (NEGATIVE); Pregs Control Background? CLEAR/WHITE (CLR/WHITE); Pregs Control Bar Appear? YES (CONTROL BAR)
[2018-10-05 02:54] LABS: Bilirubin Negative (Negative); Blood, Urine Negative (Negative); Clarity Clear (Clear); Glucose, Urine (Dipstick) Negative (Negative); Leukocyte Negative (Negative); Nitrite Negative (Negative); Protein, Urine (Dipstick) 30 mg/dL (Neg-Trace); Urobilinogen 0.2 mg/dL (0.2-1.0)
[2018-10-05 02:59] LABS: ALT (SGPT) 17 U/L (8-55); AST (SGOT) 17 U/L (5-34); Albumin 4.3 g/dL (3.5-5.0); Alcohol Less than 10 mg/dL (Less than 10); Alkaline Phosphatase 60 U/L (40-150); Anion Gap 14 mmol/L (10-20); BUN (Urea Nitrogen) 10 mg/dL (7.0-18.7); Bilirubin, Total 0.5 mg/dL (0.2-1.2); CK (CPK) 104 U/L (29-168); Calc. Creatinine Clearance 0 mL/min (70-130); Calcium 9.3 mg/dL (7.8-10.44); Carbon Dioxide 23 mmol/L (22-29); Chloride 106 mmol/L (98-107); Estimated GFR-MDRD 87; Globulin 3.3 g/dL (2.4-3.5); Glucose 113 mg/dL (70-105); Potassium 3.7 mmol/L (3.5-5.1); Protein, Total 7.6 g/dL (6.0-8.3); Sodium 139 mmol/L (136-145)
[2018-10-05 03:00] LABS: Acetaminophen Less than 6.0 mcg/mL (10.0-30.0); Alcohol Less than 10 mg/dL (Less than 10); Lipase 69 U/L (8-78); Salicylate Less than 8.0 mg/dL (15.0-30.0)
[2018-10-05 03:02] LABS: Phencyclidine (PCP) Not Detected (NotDetected); THC/Cannabinoid Screen Not Detected (NotDetected)
[2018-10-05 03:03] LABS: Amphetamine Not Detected (NotDetected); Barbiturates Screen Not Detected (NotDetected); Benzodiazepine Screen Not Detected (NotDetected); Cocaine Metabolite Screen Not Detected (NotDetected); Medtox Control Line Valid? VALID (VALID); Methadone Not Detected (NotDetected); Methamphetamine Not Detected (NotDetected); Opiate Screen Not Detected (NotDetected); Oxycodone Screen Not Detected (NotDetected); Specific Gravity, Urine 1.037 (1.002-1.036); Tricyclic Screen Not Detected (NotDetected)
[2018-10-05 03:04] LABS: Bacteria/HPF None Seen HPF (None Seen); RBC/HPF 0-3 HPF (0-3); WBC/HPF 0-3 HPF (0-3)
[2018-10-05 03:14] LABS: Elliptocytes SLIGHT = 2-5 cells (100X) (0-1/hpf); Eosinophils 1 % (0-10); Hemoglobin 12.4 g/dL (12.0-16.0); Lymphocytes 21 % (21-51); MDiff Complete? YES; Mean Corpuscular HGB CONC 31.9 g/dL (32.0-36.0); Mean Corpuscular Hemoglobin 29.3 pg (27.0-31.0); Mean Corpuscular Volume 92.1 fL (78.0-98.0); Mean Platelet Volume 5.5 fL (7.4-10.4); Monocytes 3 % (0-10); Neutrophil 70 % (42-75); PLT Morphology Comment Appears Adequate; Platelet Count 442 thou/uL (130-400); RBC Distribution Width 14.8 % (11.5-14.5); RBC Morphology Abnormal; Reactive Lymphocytes 5 % (0-10); Red Blood Cell (RBC) Count 4.23 mill/uL (4.20-5.40); White Blood Cell (WBC) Count 6.7 thou/uL (4.8-10.8)
[2018-10-05] MEDS ORDERED: Prochlorperazine 10 MG/2 ML VIAL ONE (03:27)
[2018-10-05] MEDS ORDERED: Sodium Chloride 0.9% 1,000 ML ONE (03:28)
[2018-10-05] MEDS ORDERED: Sodium Chloride 0.9% 100 ML ONE (03:28)
--- NOTE | 2018-10-05 08:11 | CT ---
PRELIMINARY REPORT/[facility]/EMERGENTY AFTER-HOURS PROCEDURE CT Head Without Contrast EXAM DATE/TIME: 10/05/2018 2:53 AM CLINICAL HISTORY: 33 years old, female; Signs and symptoms; Altered mental status/memory loss; Confusion or disorientat ion; Patient HX: Vomiting, PT not speaking , and uncoopertive R/O AMS TECHNIQUE: Axial computed tomography images of the head/brain without contrast. All CT scans at this facility use at least one of these dose optimization techniques: automated expos ure control; mA and/or kV adjustment per patient size (includes targeted exams where dose is matched to clinical indication); or iterative reconstruction. COMPARISON: No relevant prior studies available. FINDINGS: Brain: Normal. Ventricles: Normal. Bones/joints: Normal. Sinuses: Minimal ethmoid sinus disease. Mastoid air cells: Normal as visualized. Soft tissues: Normal. IMPRESSION: No acute intracranial abnormality. Thank you for allowing us to participate in the care of your patient. Dictated and Authenticated by: Billy Underwood MD 10/05/2018 3:42 AM Central Time ([place] & [place]) FINAL REPORT BRAIN CT WITHOUT IV CONTRAST: EMERGENCY AFTER HOURS TIME: 2:54 a.m. DATE: 10/05/2018. HISTORY: A 33-year-old female with a history of altered mental status, nausea, and vomiting. FINDINGS: No mass or bleed or other acute process. This report is in agreement with the preliminary report given by [facility]. POS: [facility]
== END 2018-10-05 04:10 | disposition short-term general hospital (02) ==
LOC: MADERS 01:54
DX: R41.82 Altered mental status, unspecified (principal); R11.2 Nausea with vomiting, unspecified; F41.9 Anxiety disorder, unspecified; F17.210 Nicotine dependence, cigarettes, uncomplicated
CPT/HCPCS: 51701; 70450; 80053; 80306; 80307; 81003; 81015; 82550; 83605; 83690; 84443; 84703; 85025; 93005; 96361; 96365; 96375; A4353; J0780; J2250; J7050

== ENCOUNTER 2018-10-08 02:46 | Emergency (ER) | payer OTHER | END 2018-10-08 03:15 | disposition left against medical advice (07) | LOC: MADERS 02:46 | DX: R06.02 Shortness of breath (principal); F41.9 Anxiety disorder, unspecified; F17.210 Nicotine dependence, cigarettes, uncomplicated | CPT/HCPCS: 99284 ==

== ENCOUNTER 2018-10-10 12:19 | Emergency (ER) | payer OTHER ==
[2018-10-10] MEDS ORDERED: Ondansetron ODT 4 MG TAB ONE (12:54)
[2018-10-10 13:47] LABS: Hemoglobin 12.4 g/dL (12.0-16.0); Mean Corpuscular HGB CONC 32.5 g/dL (32.0-36.0); Mean Corpuscular Hemoglobin 29.4 pg (27.0-31.0); Mean Corpuscular Volume 90.5 fL (78.0-98.0); Mean Platelet Volume 5.9 fL (7.4-10.4); Platelet Count 342 thou/uL (130-400); RBC Distribution Width 14.7 % (11.5-14.5); Red Blood Cell (RBC) Count 4.22 mill/uL (4.20-5.40); White Blood Cell (WBC) Count 8.4 thou/uL (4.8-10.8)
[2018-10-10 13:48] LABS: MDiff Complete? YES; Manual Diff?? YES; Neutrophil 60 % (42-75)
[2018-10-10 13:49] LABS: Anisocytosis SLIGHT = 6-15 cells (100X) (0-5/hpf); Lymphocytes 34 % (21-51); Monocytes 6 % (0-10); PLT Morphology Comment Appears Adequate
== END 2018-10-10 13:50 | disposition home or self-care (01) ==
LOC: MADERS 12:19
DX: R10.13 Epigastric pain (principal); F41.9 Anxiety disorder, unspecified; F17.210 Nicotine dependence, cigarettes, uncomplicated
CPT/HCPCS: 85025; 99284; Q0162

== ENCOUNTER 2018-11-01 08:38 | Emergency (ER) | payer OTHER | END 2018-11-01 09:09 | disposition home or self-care (01) | LOC: MADERS 08:38 | DX: R05 Cough (principal); F41.9 Anxiety disorder, unspecified; F17.210 Nicotine dependence, cigarettes, uncomplicated | CPT/HCPCS: 99281 ==

== ENCOUNTER 2018-11-09 15:04 | Emergency (ER) | payer OTHER ==
[2018-11-09] MEDS ORDERED: Lidocaine 2% 20 ml MDV ONE (15:36)
== END 2018-11-09 16:15 | disposition home or self-care (01) ==
LOC: MADERS 15:04
DX: N76.0 Acute vaginitis (principal); F41.9 Anxiety disorder, unspecified; F17.210 Nicotine dependence, cigarettes, uncomplicated; Z71.6 Tobacco abuse counseling
CPT/HCPCS: 56405; 99406; J2001

== ENCOUNTER 2018-12-04 10:51 | Emergency (ER) | payer OTHER | END 2018-12-04 12:19 | disposition home or self-care (01) | LOC: MADERS 10:51 | DX: S39.011A Strain of muscle, fascia and tendon of abdomen, initial encounter (principal); F41.9 Anxiety disorder, unspecified; F17.210 Nicotine dependence, cigarettes, uncomplicated; X58.XXXA Exposure to other specified factors, initial encounter | CPT/HCPCS: 99283 ==

== ENCOUNTER 2019-01-09 11:34 | Emergency (ER) | payer OTHER ==
[2019-01-09] MEDS ORDERED: Ibuprofen 800 MG TAB ONE (12:02)
[2019-01-09] MEDS ORDERED: Penicillin V Potassium 250 MG TAB ONE (12:02)
== END 2019-01-09 12:12 | disposition home or self-care (01) ==
LOC: MADERS 11:34
DX: K04.7 Periapical abscess without sinus (principal); F41.9 Anxiety disorder, unspecified; F17.210 Nicotine dependence, cigarettes, uncomplicated
CPT/HCPCS: 99283

== ENCOUNTER 2019-02-06 12:29 | Outpatient (CLI) | payer OTHER ==
--- NOTE | 2019-02-06 13:45 | RAD ---
XR Thoracolumbar 2 View Spot History: [Acute bilateral back pain without trauma] Comparison: CT abdomen and pelvis September 2018 Findings: No acute fracture or malalignment. No listhesis. Right upper quadrant surgical clips. Impression: No acute fracture or malalignment.
== END 2019-02-06 12:30 | disposition home or self-care (01) ==
LOC: MADRAD 12:29
PROVIDERS: ATTEND Physician Assistant
DX: M54.9 Dorsalgia, unspecified (principal)
CPT/HCPCS: 72080

== ENCOUNTER 2019-05-13 02:18 | Emergency (ER) | payer OTHER ==
[2019-05-13] MEDS ORDERED: Penicillin V Potassium 250 MG TAB ONE (02:40)
[2019-05-13] MEDS ORDERED: Ketorolac Tromethamine 30 MG/ML VIAL ONE (02:40)
== END 2019-05-13 02:57 | disposition home or self-care (01) ==
LOC: MADERS 02:18
DX: K04.7 Periapical abscess without sinus (principal); K02.9 Dental caries, unspecified; K03.81 Cracked tooth; F41.9 Anxiety disorder, unspecified; F17.210 Nicotine dependence, cigarettes, uncomplicated
CPT/HCPCS: 96372; 99283; J1885

== ENCOUNTER 2019-05-25 08:07 | Emergency (ER) | payer OTHER ==
[2019-05-25] MEDS ORDERED: Ondansetron PF 4 MG/2 ML Vial ONE (08:27)
[2019-05-25] MEDS ORDERED: Ketorolac Tromethamine 60 MG/2 ML VIAL ONE (08:27)
[2019-05-25 09:00] LABS: BHCG - Serum Negative (NEGATIVE)
[2019-05-25 09:01] LABS: Pregs Control Background? CLEAR/WHITE (CLR/WHITE); Pregs Control Bar Appear? YES (CONTROL BAR)
[2019-05-25 09:05] LABS: ALT (SGPT) 15 U/L (8-55); AST (SGOT) 18 U/L (5-34); Acetaminophen Less than 6.0 mcg/mL (10.0-30.0); Albumin 5.2 g/dL (3.5-5.0); Alcohol Less than 10 mg/dL (Less than 10); Alkaline Phosphatase 76 U/L (40-150); Anion Gap 22 mmol/L (10-20); BUN (Urea Nitrogen) 20 mg/dL (7.0-18.7); Bilirubin, Total 0.7 mg/dL (0.2-1.2); CK (CPK) 336 U/L (29-168); Calc. Creatinine Clearance 0 mL/min (70-130); Calcium 11.1 mg/dL (7.8-10.44); Carbon Dioxide 19 mmol/L (22-29); Chloride 104 mmol/L (98-107); Estimated GFR-MDRD 31; Globulin 4.5 g/dL (2.4-3.5); Glucose 128 mg/dL (70-105); Potassium 3.8 mmol/L (3.5-5.1); Protein, Total 9.7 g/dL (6.0-8.3); Salicylate Less than 8.0 mg/dL (15.0-30.0); Sodium 141 mmol/L (136-145)
[2019-05-25 09:12] LABS: Band 2 % (5-11); Hemoglobin 14.3 g/dL (12.0-16.0); Lymphocytes 19 % (21-51); MDiff Complete? YES; Mean Corpuscular HGB CONC 32.3 g/dL (32.0-36.0); Mean Corpuscular Hemoglobin 28.9 pg (27.0-31.0); Mean Corpuscular Volume 89.4 fL (78.0-98.0); Mean Platelet Volume 5.2 fL (7.4-10.4); Monocytes 4 % (0-10); Neutrophil 75 % (42-75); Platelet Count 530 thou/uL (130-400); Platelet Morphology Comment Appears Increased; RBC Distribution Width 16.2 % (11.5-14.5); Red Blood Cell (RBC) Count 4.95 mill/uL (4.20-5.40); White Blood Cell (WBC) Count 11.9 thou/uL (4.8-10.8)
== END 2019-05-25 09:00 | disposition left against medical advice (07) ==
LOC: MADERS 08:07
DX: R10.13 Epigastric pain (principal); R11.2 Nausea with vomiting, unspecified; F41.9 Anxiety disorder, unspecified; F17.210 Nicotine dependence, cigarettes, uncomplicated
CPT/HCPCS: 36415; 80053; 80307; 82550; 83605; 83690; 84703; 85025; J1885; J2405

== ENCOUNTER 2019-05-25 11:54 | Emergency (ER) | payer OTHER | END 2019-05-25 12:00 | disposition left against medical advice (07) | LOC: MADERS 11:54 | DX: Z53.21 Procedure and treatment not carried out due to patient leaving prior to being seen by health care provider (principal) | CPT/HCPCS: 36415; 80053; 80307; 82550; 83605; 83690; 84703; 85025; J1885; J2405 ==

== ENCOUNTER 2019-05-26 00:54 | Emergency (ER) | payer OTHER ==
[2019-05-26] MEDS ORDERED: Sodium Chloride 0.9% 1,000 ML ONE ×2 (01:18→02:46)
[2019-05-26 01:58] LABS: Alcohol Less than 10 mg/dL (Less than 10); Salicylate Less than 8.0 mg/dL (15.0-30.0)
[2019-05-26 02:01] LABS: Hemoglobin 14.8 g/dL (12.0-16.0); Lymphocytes 17 % (21-51); MDiff Complete? YES; Mean Corpuscular HGB CONC 31.4 g/dL (32.0-36.0); Mean Corpuscular Hemoglobin 27.8 pg (27.0-31.0); Mean Corpuscular Volume 88.6 fL (78.0-98.0); Mean Platelet Volume 5.2 fL (7.4-10.4); Monocytes 3 % (0-10); Neutrophil 79 % (42-75); Platelet Count 554 thou/uL (130-400); Platelet Morphology Comment Appears Adequate; RBC Distribution Width 15.5 % (11.5-14.5); RBC Morphology Normal; Reactive Lymphocytes 1 % (0-10); Red Blood Cell (RBC) Count 5.32 mill/uL (4.20-5.40)
[2019-05-26 02:02] LABS: ALT (SGPT) 17 U/L (8-55); AST (SGOT) 33 U/L (5-34); Albumin 5.5 g/dL (3.5-5.0); Alkaline Phosphatase 81 U/L (40-150); BUN (Urea Nitrogen) 37 mg/dL (7.0-18.7); Bilirubin, Total 0.7 mg/dL (0.2-1.2); CK (CPK) 1256 U/L (29-168); Calc. Creatinine Clearance 0 mL/min (70-130); Calcium 11.3 mg/dL (7.8-10.44); Carbon Dioxide 21 mmol/L (22-29); Estimated GFR-MDRD 22; Globulin 4.7 g/dL (2.4-3.5); Glucose 126 mg/dL (70-105); Protein, Total 10.2 g/dL (6.0-8.3)
[2019-05-26 02:13] LABS: Acetaminophen Less than 6.0 mcg/mL (10.0-30.0)
[2019-05-26] MEDS ORDERED: Lorazepam 2 MG/ML VIAL ONE (02:14)
[2019-05-26 02:15] LABS: Anion Gap 21 mmol/L (10-20); Chloride 96 mmol/L (98-107); Potassium 4.4 mmol/L (3.5-5.1); Sodium 135 mmol/L (136-145)
[2019-05-26 02:24] LABS: Lipase Less than 4 U/L (8-78)
[2019-05-26] MEDS ORDERED: Sodium Bicarb 5 MEQ/10 ML Abboject 4.2% SYRINGE ONE (02:32)
[2019-05-26] MEDS ORDERED: Sodium Bicarb 50 MEQ/50 ML Abboject 8.4% SYRINGE ONE (02:33)
[2019-05-26] MEDS ORDERED: Dextrose 5% in Water 1,000 ML ONE (02:34)
--- NOTE | 2019-05-26 08:06 | CT ---
PRELIMINARY REPORT/[facility]/EMERGENCY AFTER HOURS PROCEDURE: EXAM: CT Abdomen and Pelvis Without Contrast EXAM DATE/TIME: 05/26/2019 1:22 AM CLINICAL HISTORY: 33 years old, female; Abdominal pain; Generalized TECHNIQUE: Imaging protocol: Axial computed tomography images of the abdomen and pelvis without contrast. Petit l and sagittal reformatted images were created and reviewed. COMPARISON: No relevant prior studies available. FINDINGS: Liver: Normal. No mass. Gallbladder and bile ducts: Prior cholecystectomy. No biliary ductal dilatation. Pancreas: Normal. No ductal dilation. Spleen: Normal. No splenomegaly. Adrenals: Normal. No mass. Kidneys and ureters: Normal. No hydronephrosis. Stomach and bowel: No bowel wall thickening or intestinal obstruction. Appendix: Findings suggest prior appendectomy. Intraperitoneal space: Normal. No free air. No significant fluid collection. Vasculature: Normal. No abdominal aortic aneurysm. Lymph nodes: Normal. No enlarged lymph nodes. Bladder: Unremarkable as visualized. Reproductive: Unremarkable as visualized. Bones/joints: No acute fracture. No dislocation. Soft tissues: Unremarkable. IMPRESSION: No acute findings. Thank you for allowing us to participate in the care of your patient. Dictated and Authenticated by: Jonah Donnelly MD 05/26/2019 2:17 AM Central Time ([place] & [place]) FINAL REPORT EMERGENCY AFTER HOURS CT STONE PROTOCOL: Date: 05/26/19 IMPRESSION: I agree with the preliminary report provided by Rebecca. No definite acute renal or ureteral calculus is noted. No kika hydronephrosis is demonstrated. The l ack of IV contrast and intra-abdominal body fat slightly limits image detail. There are surgical sutu re lines seen within the right lower quadrant which may reflect sequelae of prior appendectomy as the appendix is not definitely seen. Mild amount of retained stool is seen within the colon. Gallbladder surgically absent. No definite acute osseous abnormality evident. Exam was compared to prior dated 0 06/12/18. POS:
--- NOTE | 2019-05-26 08:07 | CT ---
PRELIMINARY REPORT/[facility]/EMERGENCY AFTER HOURS PROCEDURE: EXAM: CT Head Without Contrast EXAM DATE/TIME: 05/26/2019 1:46 AM CLINICAL HISTORY: 33 years old, female; Altered mental status/memory loss TECHNIQUE: Imaging protocol: Computed tomography images of the head without contrast. COMPARISON: No relevant prior studies available. FINDINGS: Brain: Normal. No hemorrhage. Unremarkable white matter. No mass effect. Ventricles: Normal. No ventriculomegaly. Bones/joints: Unremarkable. No acute fracture. Sinuses: Visualized sinuses are unremarkable. No fluid levels. Mastoid air cells: Visualized mastoid air cells are well aerated. No mastoid effusion. Soft tissues: Unremarkable. IMPRESSION: No acute intracranial abnormality. Thank you for allowing us to participate in the care of your patient. Dictated and Authenticated by: Jonah Donnelly MD 05/26/2019 2:03 AM Central Time ([place] & [place]) FINAL REPORT EMERGENCY AFTER HOURS CT BRAIN: DATE: 05/26/19 IMPRESSION: I agree with the preliminary report provided by [facility]. No acute intracranial abnormality demonstrated. POS: [facility]
[2019-05-26] MEDS ORDERED: methylPREDNISolone Sod Succ/PF 125 MG/2 ML VIAL ONE (09:19)
== END 2019-05-26 02:59 | disposition short-term general hospital (02) ==
LOC: MADERS 00:54
DX: M62.82 Rhabdomyolysis (principal); N17.9 Acute kidney failure, unspecified
CPT/HCPCS: 36415; 36416; 70450; 74176; 80053; 80307; 82550; 83605; 83690; 84443; 85025; 93005; 96361; 96365; 96375; J2060; J2930; J7050; J7070

== ENCOUNTER 2019-06-01 00:39 | Emergency (ER) | payer OTHER ==
[2019-06-01 02:05] LABS: #Basophils 0.2 thou/uL (0.0-0.2); #Lymphocytes 2.4 thou/uL (1.20-3.40); #Monocytes 0.9 thou/uL (0.11-0.59); #Neutrophils 12.6 thou/uL (1.40-6.50); %Basophils 1.3 % (0.0-1.0); %Eosinophils 0.1 % (0.0-10.0); %Lymphocytes 15.1 % (21.0-51.0); %Monocytes 5.7 % (0.0-10.0); %Neutrophils 77.9 % (42.0-75.0); Hemoglobin 15.4 g/dL (12.0-16.0); Mean Corpuscular HGB CONC 31.7 g/dL (32.0-36.0); Mean Corpuscular Hemoglobin 28.3 pg (27.0-31.0); Mean Corpuscular Volume 89.4 fL (78.0-98.0); Mean Platelet Volume 5.6 fL (7.4-10.4); Platelet Count 352 thou/uL (130-400); RBC Distribution Width 16.1 % (11.5-14.5); Red Blood Cell (RBC) Count 5.45 mill/uL (4.20-5.40); White Blood Cell (WBC) Count 16.2 thou/uL (4.8-10.8)
[2019-06-01] MEDS ORDERED: Ondansetron PF 4 MG/2 ML Vial ONE (02:13)
[2019-06-01] MEDS ORDERED: Sodium Chloride 0.9% 1,000 ML ONE (02:13)
[2019-06-01 02:14] LABS: ALT (SGPT) 18 U/L (8-55); AST (SGOT) 19 U/L (5-34); Albumin 5.3 g/dL (3.5-5.0); Alkaline Phosphatase 86 U/L (40-150); Anion Gap 21 mmol/L (10-20); BUN (Urea Nitrogen) 22 mg/dL (7.0-18.7); Bilirubin, Total 0.6 mg/dL (0.2-1.2); CK (CPK) 258 U/L (29-168); Calc. Creatinine Clearance 0 mL/min (70-130); Carbon Dioxide 24 mmol/L (22-29); Chloride 96 mmol/L (98-107); Estimated GFR-MDRD 45; Globulin 4.2 g/dL (2.4-3.5); Glucose 123 mg/dL (70-105); Protein, Total 9.5 g/dL (6.0-8.3); Sodium 137 mmol/L (136-145)
[2019-06-01 02:46] LABS: Bilirubin Negative (Negative); Blood, Urine Negative (Negative); Glucose, Urine (Dipstick) Negative (Negative); Leukocyte Negative (Negative); Nitrite Negative (Negative); Protein, Urine (Dipstick) > or equal to 300 mg/dL (Neg-Trace); Urobilinogen 0.2 mg/dL (Less than 2)
[2019-06-01] MEDS ORDERED: Ketorolac Tromethamine 30 MG/ML VIAL ONE (02:47)
[2019-06-01 02:48] LABS: Clarity Cloudy (Clear); Pregnancy Test - Urine (BHCG) Negative (Negative); Pregu Control Background? CLEAR/WHITE (CLR/WHITE); Pregu Control Bar Appear? YES (CONTROL BAR); Specific Gravity 1.028 (1.002-1.036)
[2019-06-01 02:51] LABS: Bacteria/HPF 1+ HPF (None Seen); Mucous/LPF 3+ LPF (<2+)
[2019-06-01 02:52] LABS: Amphetamine Not Detected (NotDetected); Benzodiazepine Screen Not Detected (NotDetected); Cocaine Metabolite Screen Not Detected (NotDetected); Methamphetamine Not Detected (NotDetected); Opiate Screen Not Detected (NotDetected); Phencyclidine (PCP) Not Detected (NotDetected); THC/Cannabinoid Screen Not Detected (NotDetected); Tricyclic Screen Not Detected (NotDetected)
[2019-06-01 02:53] LABS: Barbiturates Screen Not Detected (NotDetected); Medtox Control Line Valid? VALID (VALID); Methadone Not Detected (NotDetected); Oxycodone Screen Not Detected (NotDetected)
== END 2019-06-01 03:00 | disposition left against medical advice (07) ==
LOC: MADERS 00:39
DX: N39.0 Urinary tract infection, site not specified (principal); R11.2 Nausea with vomiting, unspecified
CPT/HCPCS: 36415; 80053; 80306; 81003; 81015; 81025; 82550; 83605; 84484; 85025; 87086; 93005; 94760; 96361; 96374; 96375; J1885; J2405; J7050

== ENCOUNTER 2019-06-02 05:20 | Emergency (ER) | payer OTHER ==
[2019-06-02] MEDS ORDERED: Sodium Chloride 0.9% 1,000 ML ONE (06:14)
[2019-06-02] MEDS ORDERED: Ketorolac Tromethamine 30 MG/ML VIAL ONE (06:14)
[2019-06-02] MEDS ORDERED: Lorazepam 2 MG/ML VIAL ONE (06:14)
[2019-06-02 06:55] LABS: Anisocytosis SLIGHT = 6-15 cells (100X) (0-5/hpf); Hemoglobin 13.4 g/dL (12.0-16.0); Hypochromia SLIGHT = 6-15 cells (100X) (0-5/hpf); Lymphocytes 26 % (21-51); MDiff Complete? YES; Mean Corpuscular Hemoglobin 28.3 pg (27.0-31.0); Mean Corpuscular Volume 88.6 fL (78.0-98.0); Monocytes 4 % (0-10); Neutrophil 70 % (42-75); Platelet Count 331 thou/uL (130-400); Platelet Morphology Comment Appears Adequate; Poikilocytosis SLIGHT = 6-15 cells (100X) (0-5/hpf); RBC Distribution Width 16.4 % (11.5-14.5); RBC Morphology Abnormal; Red Blood Cell (RBC) Count 4.71 mill/uL (4.20-5.40); Target Cells SLIGHT = 2-5 cells (100X) (0-1/hpf); White Blood Cell (WBC) Count 9.6 thou/uL (4.8-10.8)
[2019-06-02 08:01] LABS: Anion Gap 17 mmol/L (10-20)
[2019-06-02 08:18] LABS: ALT (SGPT) 17 U/L (8-55); AST (SGOT) 24 U/L (5-34); Albumin 4.1 g/dL (3.5-5.0); Alkaline Phosphatase 63 U/L (40-150); BUN (Urea Nitrogen) 19 mg/dL (7.0-18.7); Bilirubin, Total 0.6 mg/dL (0.2-1.2); CK (CPK) 328 U/L (29-168); Calc. Creatinine Clearance 0 mL/min (70-130); Carbon Dioxide 24 mmol/L (22-29); Chloride 98 mmol/L (98-107); Estimated GFR-MDRD Greater than 90; Globulin 3.3 g/dL (2.4-3.5); Glucose 105 mg/dL (70-105); Lipase 37 U/L (8-78); Potassium 4.3 mmol/L (3.5-5.1); Protein, Total 7.4 g/dL (6.0-8.3); Sodium 135 mmol/L (136-145)
--- NOTE | 2019-06-02 12:56 | CT ---
CT ABDOMEN AND PELVIS WITHOUT CONTRAST: INDICATIONS: Right flank pain. Leukocytosis. COMPARISON: 05/26/2019 FINDINGS: No evidence of urolithiasis or obstructive uropathy. There is a large volume of retained fecal mater ial throughout the colon. Prior cholecystectomy noted. There is limited evaluation of the bowel, ly mph nodes, vasculature, and solid abdominal organs, on the basis of the noncontrast technique. The v isualized lung bases are clear. No acute osseous pathology. No free air or significant ascites. IMPRESSION: 1. Stable CT examination, when compared to 05/26/2019, without evidence of interval development of u rinary tract calculus or obstructive uropathy. 2. Large volume retained fecal material throughout the colon. Correlate clinically. POS: [facility]
== END 2019-06-02 08:28 | disposition home or self-care (01) ==
LOC: MADERS 05:20
DX: R10.9 Unspecified abdominal pain (principal); R10.811 Right upper quadrant abdominal tenderness; M62.82 Rhabdomyolysis
CPT/HCPCS: 36415; 74176; 80053; 82550; 83605; 83690; 84484; 85025; 96361; 96374; 96375; J1885; J2060; J7050

== ENCOUNTER 2019-06-10 16:00 | Emergency (ER) | payer OTHER ==
[2019-06-10 16:38] LABS: Anisocytosis SLIGHT = 6-15 cells (100X) (0-5/hpf); Band 1 % (5-11); Hemoglobin 11.7 g/dL (12.0-16.0); Hypochromia SLIGHT = 6-15 cells (100X) (0-5/hpf); Lymphocytes 12 % (21-51); MDiff Complete? YES; Mean Corpuscular Hemoglobin 28.8 pg (27.0-31.0); Mean Platelet Volume 5.4 fL (7.4-10.4); Monocytes 5 % (0-10); Neutrophil 82 % (42-75); Platelet Count 364 thou/uL (130-400); Platelet Morphology Comment Appears Adequate; RBC Distribution Width 16.2 % (11.5-14.5); Red Blood Cell (RBC) Count 4.06 mill/uL (4.20-5.40); White Blood Cell (WBC) Count 11.3 thou/uL (4.8-10.8)
[2019-06-10 16:39] LABS: BHCG - Serum Negative (NEGATIVE); Pregs Control Background? CLEAR/WHITE (CLR/WHITE); Pregs Control Bar Appear? YES (CONTROL BAR)
[2019-06-10 16:42] LABS: ALT (SGPT) 12 U/L (8-55); AST (SGOT) 17 U/L (5-34); Albumin 4.3 g/dL (3.5-5.0); Alkaline Phosphatase 64 U/L (40-150); Anion Gap 15 mmol/L (10-20); BUN (Urea Nitrogen) 6 mg/dL (7.0-18.7); Bilirubin, Total 0.5 mg/dL (0.2-1.2); Calc. Creatinine Clearance 0 mL/min (70-130); Calcium 9.7 mg/dL (7.8-10.44); Carbon Dioxide 26 mmol/L (22-29); Chloride 102 mmol/L (98-107); Estimated GFR-MDRD Greater than 90; Globulin 3.2 g/dL (2.4-3.5); Glucose 108 mg/dL (70-105); Lipase 286 U/L (8-78); Potassium 3.9 mmol/L (3.5-5.1); Protein, Total 7.5 g/dL (6.0-8.3); Sodium 139 mmol/L (136-145)
[2019-06-10 16:43] LABS: Acetaminophen Less than 6.0 mcg/mL (10.0-30.0); Alcohol Less than 10 mg/dL (Less than 10); Salicylate Less than 8.0 mg/dL (15.0-30.0)
[2019-06-10 17:13] LABS: Amphetamine Not Detected (NotDetected); Barbiturates Screen Not Detected (NotDetected); Benzodiazepine Screen Not Detected (NotDetected); Cocaine Metabolite Screen Not Detected (NotDetected); Medtox Control Line Valid? VALID (VALID); Methadone Not Detected (NotDetected); Methamphetamine Not Detected (NotDetected); Opiate Screen Not Detected (NotDetected); Oxycodone Screen Not Detected (NotDetected); Phencyclidine (PCP) Not Detected (NotDetected); THC/Cannabinoid Screen Not Detected (NotDetected); Tricyclic Screen Not Detected (NotDetected)
[2019-06-10] MEDS ORDERED: Ondansetron PF 4 MG/2 ML Vial ONE (17:31)
--- NOTE | 2019-06-10 18:00 | CT ---
CT BRAIN: 06/10/2019 PROVIDED CLINICAL HISTORY: Altered mental status. COMPARISON: Recent study dated 05/26/2019. FINDINGS: The ventricular system appears unchanged in size and morphology. There is no evidence for intracrani al hemorrhage or mass effect. The extracranial soft tissues and osseous structures demonstrate no si gnificant abnormality. IMPRESSION: No evidence for intracranial hemorrhage or mass effect. POS: [facility]
== END 2019-06-10 18:15 | disposition home or self-care (01) ==
LOC: MADERS 16:00
DX: R40.0 Somnolence (principal); R41.0 Disorientation, unspecified; T50.905A Adverse effect of unspecified drugs, medicaments and biological substances, initial encounter; F41.9 Anxiety disorder, unspecified
CPT/HCPCS: 36415; 51701; 70450; 80053; 80306; 80307; 83605; 83690; 84484; 84703; 85025; 93005; 94760; A4353; J2405

== ENCOUNTER 2019-08-25 14:25 | Emergency (ER) | payer OTHER ==
[2019-08-25 15:12] LABS: #Basophils 0.1 thou/uL (0.0-0.2); #Eosinphils 0.1 thou/uL (0.0-0.7); #Lymphocytes 2.6 thou/uL (1.20-3.40); #Monocytes 0.3 thou/uL (0.11-0.59); #Neutrophils 3.8 thou/uL (1.40-6.50); %Basophils 1.7 % (0.0-1.0); %Eosinophils 1.9 % (0.0-10.0); %Monocytes 4.9 % (0.0-10.0); %Neutrophils 54.5 % (42.0-75.0); Hemoglobin 11.3 g/dL (12.0-16.0); Mean Corpuscular HGB CONC 30.9 g/dL (32.0-36.0); Mean Corpuscular Hemoglobin 29.6 pg (27.0-31.0); Mean Corpuscular Volume 95.7 fL (78.0-98.0); Mean Platelet Volume 5.7 fL (7.4-10.4); Platelet Count 394 thou/uL (130-400); RBC Distribution Width 15.6 % (11.5-14.5); Red Blood Cell (RBC) Count 3.83 mill/uL (4.20-5.40)
[2019-08-25 15:25] LABS: Bilirubin Negative (Negative); Blood, Urine Negative (Negative); Clarity Clear (Clear); Glucose, Urine (Dipstick) Negative (Negative); Leukocyte Negative (Negative); Nitrite Negative (Negative); Protein, Urine (Dipstick) Negative (Neg-Trace)
[2019-08-25 15:27] LABS: ALT (SGPT) 7 U/L (8-55); AST (SGOT) 13 U/L (5-34); Albumin 4.5 g/dL (3.5-5.0); Alkaline Phosphatase 52 U/L (40-110); Anion Gap 12 mmol/L (10-20); BUN (Urea Nitrogen) 9 mg/dL (7.0-18.7); Bilirubin, Total 0.6 mg/dL (0.2-1.2); Calc. Creatinine Clearance 0 mL/min (70-130); Carbon Dioxide 26 mmol/L (22-29); Chloride 104 mmol/L (98-107); Estimated GFR-MDRD Greater than 90; Globulin 2.9 g/dL (2.4-3.5); Glucose 85 mg/dL (70-105); Lipase 36 U/L (8-78); Potassium 4.1 mmol/L (3.5-5.1); Protein, Total 7.4 g/dL (6.0-8.3); Sodium 138 mmol/L (136-145)
[2019-08-25 15:28] LABS: Pregnancy Test - Urine (BHCG) Negative (Negative); Pregu Control Background? CLEAR/WHITE (CLR/WHITE); Pregu Control Bar Appear? YES (CONTROL BAR); Specific Gravity 1.025 (1.002-1.036)
== END 2019-08-25 15:37 | disposition home or self-care (01) ==
LOC: MADERS 14:25
DX: R10.32 Left lower quadrant pain (principal); F41.9 Anxiety disorder, unspecified
CPT/HCPCS: 36415; 80053; 81003; 81025; 83690; 85025; 99284

== ENCOUNTER 2019-09-06 07:39 | Emergency (ER) | payer OTHER, SELFPAY | END 2019-09-06 08:19 | disposition home or self-care (01) | LOC: MADERS 07:39 | DX: K04.7 Periapical abscess without sinus (principal); K02.9 Dental caries, unspecified; F41.9 Anxiety disorder, unspecified | CPT/HCPCS: 99282 ==

== ENCOUNTER 2019-12-03 16:51 | Emergency (ER) | payer OTHER ==
[2019-12-03] MEDS ORDERED: HYDROcodone/Acetaminophen 5/325 mg Tablet ONE (17:04)
[2019-12-03] MEDS ORDERED: Ibuprofen 800 MG TAB ONE (17:04)
[2019-12-03] MEDS ORDERED: Oseltamivir 75 MG CAP ONE (17:04)
== END 2019-12-03 17:10 | disposition home or self-care (01) ==
LOC: MADERS 16:51
DX: J11.1 Influenza due to unidentified influenza virus with other respiratory manifestations (principal); F17.210 Nicotine dependence, cigarettes, uncomplicated
CPT/HCPCS: 99283

== ENCOUNTER 2020-01-20 10:39 | Emergency (ER) | payer OTHER | END 2020-01-20 11:35 | disposition home or self-care (01) | LOC: MADERS 10:39 | DX: J11.1 Influenza due to unidentified influenza virus with other respiratory manifestations (principal); F17.210 Nicotine dependence, cigarettes, uncomplicated | CPT/HCPCS: 99283 ==

== ENCOUNTER 2020-05-05 17:51 | Emergency (ER) | payer OTHER ==
[2020-05-05] MEDS ORDERED: HYDROcodone/Acetaminophen 5/325 mg Tablet ONE (18:47)
[2020-05-05 19:07] LABS: Bilirubin Negative (Negative); Blood, Urine Negative (Negative); Glucose, Urine (Dipstick) Negative (Negative); Ketone, Urine Trace mg/dL (Negative); Leukocyte Negative (Negative); Nitrite Negative (Negative); Protein, Urine (Dipstick) Negative (Neg-Trace); Urobilinogen 0.2 mg/dL (Less than 2); pH, Urine 5.5 (5.0-9.0)
[2020-05-05 19:08] LABS: Clarity Hazy (Clear); Specific Gravity, Urine 1.036 (1.002-1.036)
[2020-05-05 19:10] LABS: Pregnancy Test - Urine (BHCG) Negative (Negative); Pregu Control Background? CLEAR/WHITE (CLR/WHITE); Pregu Control Bar Appear? YES (CONTROL BAR); Specific Gravity 1.036 (1.002-1.036)
[2020-05-05 19:12] LABS: #Basophils 0.1 thou/uL (0.0-0.2); #Eosinphils 0.1 thou/uL (0.0-0.7); #Monocytes 0.6 thou/uL (0.11-0.59); #Neutrophils 3.3 thou/uL (1.40-6.50); %Basophils 1.9 % (0.0-1.0); %Eosinophils 1.7 % (0.0-10.0); %Lymphocytes 42.3 % (21.0-51.0); %Monocytes 8.2 % (0.0-10.0); Hemoglobin 10.7 g/dL (12.0-16.0); Mean Corpuscular HGB CONC 30.6 g/dL (32.0-36.0); Mean Corpuscular Hemoglobin 28.5 pg (27.0-31.0); Mean Corpuscular Volume 93.4 fL (78.0-98.0); Mean Platelet Volume 5.6 fL (7.4-10.4); Platelet Count 431 thou/uL (130-400); RBC Distribution Width 14.9 % (11.5-14.5); Red Blood Cell (RBC) Count 3.74 mill/uL (4.20-5.40); White Blood Cell (WBC) Count 7.1 thou/uL (4.8-10.8)
[2020-05-05 19:25] LABS: ALT (SGPT) 12 U/L (8-55); AST (SGOT) 13 U/L (5-34); Alkaline Phosphatase 55 U/L (40-110); Anion Gap 13 mmol/L (10-20); BUN (Urea Nitrogen) 9 mg/dL (7.0-18.7); Bilirubin, Total 0.3 mg/dL (0.2-1.2); Calc. Creatinine Clearance 0 mL/min (70-130); Calcium 8.8 mg/dL (7.8-10.44); Carbon Dioxide 23 mmol/L (22-29); Chloride 107 mmol/L (98-107); Estimated GFR-MDRD Greater than 90; Globulin 2.9 g/dL (2.4-3.5); Glucose 85 mg/dL (70-105); Lipase 30 U/L (8-78); Potassium 3.7 mmol/L (3.5-5.1); Protein, Total 6.9 g/dL (6.0-8.3); Sodium 139 mmol/L (136-145)
== END 2020-05-05 20:46 | disposition home or self-care (01) ==
LOC: MADERS 17:51
DX: S39.011A Strain of muscle, fascia and tendon of abdomen, initial encounter (principal); F17.210 Nicotine dependence, cigarettes, uncomplicated; X58.XXXA Exposure to other specified factors, initial encounter
CPT/HCPCS: 36415; 80053; 81003; 81025; 83690; 85025; 99283

== ENCOUNTER 2020-05-10 07:00 | Emergency (ER) | payer OTHER ==
[2020-05-10] MEDS ORDERED: Ketorolac Tromethamine 60 MG/2 ML VIAL ONE (07:51)
[2020-05-10 08:04] LABS: #Basophils 0.1 thou/uL (0.0-0.2); #Eosinphils 0.1 thou/uL (0.0-0.7); #Lymphocytes 1.5 thou/uL (1.20-3.40); #Monocytes 0.6 thou/uL (0.11-0.59); #Neutrophils 3.1 thou/uL (1.40-6.50); %Basophils 2.2 % (0.0-1.0); %Eosinophils 1.1 % (0.0-10.0); %Lymphocytes 27.7 % (21.0-51.0); %Monocytes 11.5 % (0.0-10.0); %Neutrophils 57.5 % (42.0-75.0); Hemoglobin 11.9 g/dL (12.0-16.0); Mean Corpuscular HGB CONC 31.5 g/dL (32.0-36.0); Mean Corpuscular Hemoglobin 28.6 pg (27.0-31.0); Mean Corpuscular Volume 90.8 fL (78.0-98.0); Mean Platelet Volume 6.2 fL (7.4-10.4); Platelet Count 366 thou/uL (130-400); RBC Distribution Width 14.8 % (11.5-14.5); Red Blood Cell (RBC) Count 4.14 mill/uL (4.20-5.40); White Blood Cell (WBC) Count 5.3 thou/uL (4.8-10.8)
[2020-05-10 08:18] LABS: ALT (SGPT) 17 U/L (8-55); AST (SGOT) 19 U/L (5-34); Albumin 4.2 g/dL (3.5-5.0); Alkaline Phosphatase 58 U/L (40-110); Anion Gap 15 mmol/L (10-20); BUN (Urea Nitrogen) 11 mg/dL (7.0-18.7); Bilirubin, Total 0.3 mg/dL (0.2-1.2); Calc. Creatinine Clearance 0 mL/min (70-130); Calcium 9.1 mg/dL (7.8-10.44); Carbon Dioxide 21 mmol/L (22-29); Chloride 107 mmol/L (98-107); Estimated GFR-MDRD Greater than 90; Globulin 3.3 g/dL (2.4-3.5); Glucose 88 mg/dL (70-105); Lipase 19 U/L (8-78); Potassium 4.3 mmol/L (3.5-5.1); Protein, Total 7.5 g/dL (6.0-8.3); Sodium 139 mmol/L (136-145)
[2020-05-10] MEDS ORDERED: Ciprofloxacin 500 MG TAB ONE (08:57)
[2020-05-10] MEDS ORDERED: metroNIDAZOLE 250 MG TAB ONE (08:57)
--- NOTE | 2020-05-10 09:24 | CT ---
CT SCAN ABDOMEN AND PELVIS WITHOUT IV CONTRAST: HISTORY: Left flank pain. COMPARISON: 06/02/2019 05/27/2019 FINDINGS: The lung bases are clear. Status post cholecystectomy. The liver, pancreas, spleen and adrenal glands are unremarkable as visualized without IV contrast or oral contrast. Evidence for prior appendectomy . There is suggestion of one minimally dilated loop of bowel, probably small bowel, measuring approxi mately 3 cm in diameter, in the left pelvis. The uterus appears to be within the upper range of bolivar l limits. No abnormal fluid collection. No renal calculus or acute obstruction. IMPRESSION: 1. No evidence for renal calculus or acute genitourinary obstruction. 2. Possible focal minimally dilated loop of bowel in the left abdomen. This if very poorly seen and v rell nonspecific. Given that the patient appears to have recurrent left-sided pain, a follow-up nonemergent abdomen and pelvis CT scan with IV and oral contrast might be of benefit. POS: [facility]
== END 2020-05-10 09:07 | disposition home or self-care (01) ==
LOC: MADERS 07:00
DX: K52.9 Noninfective gastroenteritis and colitis, unspecified (principal); F41.9 Anxiety disorder, unspecified; F17.210 Nicotine dependence, cigarettes, uncomplicated
CPT/HCPCS: 36415; 74176; 80053; 83690; 85025; 96372; J1885

== ENCOUNTER 2020-08-21 13:56 | Emergency (ER) | payer OTHER ==
--- NOTE | 2020-08-21 14:34 | RAD ---
EXAM: CHEST ONE VIEW HISTORY: Cough COMPARISON: 08/26/2018 FINDINGS: Cardiac silhouette is magnified by projection but does appear at the upper limits normal to borderlin e enlarged. Pulmonary vasculature is within normal limits. The lungs are clear. No other interval change IMPRESSION: 1. Upper limits of normal to borderline cardiomegaly. 2. No acute cardiopulmonary process.
[2020-08-22 12:02] LABS: SARS-CoV-2 MS2 Positive; SARS-CoV-2 N Gene Negative; SARS-CoV-2 S Gene Negative; SARS-CoV-2 by NAA Not Detected (NotDetected); SARS-CoV-2 orf1ab Negative
--- NOTE | 2020-08-31 06:19 | PQF ---
[facility] POST DISCHARGE CLINICAL DOCUMENTATION IMPROVEMENT CLARIFICATION FORM Todays Date: 08/28/2020 Patients Name Ailin Pritchett Admit Date 08/21/2020 Disch Date 08/21/2020 Litigation Secretary Name Tucker lindquist Email: [email or web address] Cell: [phone] To be completed by Litigation Secretary: Present Clinical Indicators - Signs / Symptoms Results and Location in Medical Record [ ] Documentation of: [ ] [ ] Documentation of: [ ] [ ] Documentation of: [ ] [ ] Documentation of: [ ] [ ] Risks [ ] [ ] [ ] Treatment [X] Bronchitis Query for specificity of acute or chronic bronchitis [ ] [ ] To be completed by Physician: MD Douglas Michael The documentation in this patients record requires clarification to ensure coding compliance and accuracy. Check the appropriate box and include in your discharge summary. [ ] [ ] [ ] [ ] Please check this box if this does not apply to this patient [ ] Unable to determine [ ] Other diagnosis: Review the following information and exercise your independent professional judgment in responding to the clarification. Based upon the clinical findings, risk factors, and treatment, please clarify if you are treating one of the above probable or suspected diagnoses. Physician Signature: Date Time MTDD
== END 2020-08-21 15:18 | disposition home or self-care (01) ==
LOC: MADERS 13:56
DX: J40 Bronchitis, not specified as acute or chronic (principal); Z20.828 Contact with and (suspected) exposure to other viral communicable diseases; F17.210 Nicotine dependence, cigarettes, uncomplicated
CPT/HCPCS: 71045; 87635; U0003

== ENCOUNTER 2022-06-28 08:11 | Emergency (ER) | payer OTHER | END 2022-06-28 08:24 | disposition left against medical advice (07) | LOC: MADERS 08:11 | DX: Z53.21 Procedure and treatment not carried out due to patient leaving prior to being seen by health care provider (principal) ==

== ENCOUNTER 2022-07-02 20:43 | Emergency (ER) | payer OTHER ==
[2022-07-02 22:20] LABS: ALT (SGPT) 12 U/L (8-55); AST (SGOT) 9 U/L (5-34); Albumin 4.7 g/dL (3.5-5.0); Alcohol Less than 10 mg/dL (Less than 10); Alkaline Phosphatase 67 U/L (40-110); Anion Gap 17 mmol/L (10-20); BUN (Urea Nitrogen) 15 mg/dL (7.0-18.7); Bilirubin, Total 0.8 mg/dL (0.2-1.2); Calc. Creatinine Clearance 0 mL/min (70-130); Calcium 10.7 mg/dL (7.8-10.44); Carbon Dioxide 24 mmol/L (22-29); Chloride 99 mmol/L (98-107); Estimated GFR 68; Globulin 4.1 g/dL (2.4-3.5); Glucose 115 mg/dL (70-105); Potassium 3.4 mmol/L (3.5-5.1); Protein, Total 8.8 g/dL (6.0-8.3); Sodium 137 mmol/L (136-145)
== END 2022-07-02 22:16 | disposition left against medical advice (07) ==
LOC: MADERS 20:43
DX: G89.29 Other chronic pain (principal); R10.9 Unspecified abdominal pain; R41.82 Altered mental status, unspecified; T43.3X5A Adverse effect of phenothiazine antipsychotics and neuroleptics, initial encounter; I45.10 Unspecified right bundle-branch block; F17.210 Nicotine dependence, cigarettes, uncomplicated
CPT/HCPCS: 80053; 80307; 93005

== ENCOUNTER 2022-07-20 17:21 | Emergency (ER) | payer OTHER | END 2022-07-20 18:10 | disposition left against medical advice (07) | LOC: MADERS 17:21 | DX: Z53.21 Procedure and treatment not carried out due to patient leaving prior to being seen by health care provider (principal) ==

== ENCOUNTER 2024-07-15 19:09 | Emergency (ER) | payer MEDICAID ==
[2024-07-15] MEDS ORDERED: Ibuprofen 800 MG TAB ONE (19:51)
[2024-07-15] MEDS ORDERED: Benzonatate 100 MG CAP ONE (19:51)
[2024-07-17 15:19] LABS: SARS-CoV-2 N1 Negative; SARS-CoV-2 N2 Negative; SARS-CoV-2 RNAse P1 Positive; SARS-CoV-2 RNAse P2 Positive
== END 2024-07-15 20:48 | disposition home or self-care (01) ==
LOC: MADERS 19:09
DX: J06.9 Acute upper respiratory infection, unspecified (principal); M79.10 Myalgia, unspecified site; F17.210 Nicotine dependence, cigarettes, uncomplicated
CPT/HCPCS: 71045; 87081; 87430; 87635; 87804; 94760

== ENCOUNTER 2024-11-17 18:54 | Emergency (ER) | payer MEDICAID ==
[2024-11-17] MEDS ORDERED: Ketorolac Tromethamine 30 MG (1 mL) VIAL ONE (19:05)
[2024-11-17] MEDS ORDERED: Haloperidol Lactate 5 MG/ML VIAL ONE (19:05)
[2024-11-17 19:24] LABS: #Basophils 0.1 thou/uL (0.0-0.2); #Eosinophils 0.1 thou/uL (0.0-0.7); #Lymphocytes 2.7 thou/uL (1.20-3.40); #Monocytes 0.5 thou/uL (0.11-0.59); #Neutrophils 3.6 thou/uL (1.40-6.50); %Basophils 1.5 % (0.0-1.0); %Lymphocytes 38.2 % (21.0-51.0); %Neutrophils 51.3 % (42.0-75.0); Hematocrit 31.2 % (36.0-47.0); Hemoglobin 9.4 g/dL (12.0-16.0); Mean Corpuscular HGB CONC 30.1 g/dL (32.0-36.0); Mean Corpuscular Volume 89.7 fl (78.0-98.0); Mean Platelet Volume 5.5 fL (7.4-10.4); Platelet Count 419 10x3/uL (130-400); RBC Distribution Width 16.7 % (11.5-14.5); Red Blood Cell (RBC) Count 3.48 mill/uL (4.20-5.40)
[2024-11-17 19:33] LABS: BHCG - Serum Negative (NEGATIVE); Pregs Control Background? CLEAR/WHITE (CLR/WHITE); Pregs Control Bar Appear? YES (CONTROL BAR)
[2024-11-17 19:39] LABS: ALT (SGPT) 14 U/L (8-55); AST (SGOT) 14 U/L (5-34); Albumin 3.5 g/dL (3.5-5.0); Alkaline Phosphatase 47 U/L (40-110); Anion Gap 13 mmol/L (10-20); BUN (Urea Nitrogen) 12 mg/dL (7.0-18.7); Bilirubin, Total 0.3 mg/dL (0.2-1.2); Calc. Creatinine Clearance 0 mL/min (70-130); Calcium 8.5 mg/dL (7.8-10.44); Carbon Dioxide 22 mmol/L (22-29); Chloride 108 mmol/L (98-107); Estimated GFR 97; Globulin 3.2 g/dL (2.4-3.5); Glucose 106 mg/dL (70-105); Lipase 621 U/L (8-78); Potassium 3.8 mmol/L (3.5-5.1); Protein, Total 6.7 g/dL (6.0-8.3); Sodium 139 mmol/L (136-145)
[2024-11-17] MEDS ORDERED: Sodium Chloride 0.9% 1,000 ML ONE (19:44)
[2024-11-17 19:52] LABS: Bacteria/HPF Rare-Few HPF (None Seen); Bilirubin Negative (Negative); Blood, Urine Negative (Negative); CAUTI Indications for Culture Pelvic or flank pain; Clarity Clear (Clear); Glucose, Urine (Dipstick) Negative (Negative); Ketone, Urine Negative (Negative); Leukocyte Negative (Negative); Nitrite Negative (Negative); Protein, Urine (Dipstick) 30 mg/dL (Neg-Trace); RBC/HPF 0-3 HPF (0-3); Squamous Epithelial 0-3 HPF (0-3); Urobilinogen 0.2 mg/dL (Less than 2); WBC/HPF 0-3 HPF (0-3)
[2024-11-17 19:53] LABS: Urine Culture Reflex No No
== END 2024-11-17 20:48 | disposition home or self-care (01) ==
LOC: MADERS 18:54
DX: R10.31 Right lower quadrant pain (principal); R10.32 Left lower quadrant pain; D64.9 Anemia, unspecified; G89.29 Other chronic pain; F17.210 Nicotine dependence, cigarettes, uncomplicated; F43.12 Post-traumatic stress disorder, chronic; F31.9 Bipolar disorder, unspecified; Z55.6 Problems related to health literacy
CPT/HCPCS: 36415; 51701; 80053; 81001; 83690; 84703; 85025; 96361; 96374; 96375; J1630; J1885; J7030

== ENCOUNTER 2025-06-19 18:24 | Emergency (ER) | payer MEDICAID | END 2025-06-19 18:55 | disposition left against medical advice (07) | LOC: MADERS 18:24 | DX: Z53.21 Procedure and treatment not carried out due to patient leaving prior to being seen by health care provider (principal) ==

== ENCOUNTER 2025-07-23 02:10 | Emergency (ER) | payer OTHER ==
[2025-07-23 02:38] LABS: #Basophils 0.1 thou/uL (0.0-0.2); #Eosinophils 0.0 thou/uL (0.0-0.7); #Lymphocytes 2.5 thou/uL (1.20-3.40); #Monocytes 0.8 thou/uL (0.11-0.59); #Neutrophils 7.8 thou/uL (1.40-6.50); %Basophils 1.0 % (0.0-1.0); %Eosinophils 0.4 % (0.0-10.0); %Lymphocytes 22.4 % (21.0-51.0); %Monocytes 7.1 % (0.0-10.0); %Neutrophils 69.1 % (42.0-75.0); Hematocrit 32.8 % (36.0-47.0); Hemoglobin 9.8 g/dL (12.0-16.0); Mean Corpuscular Hemoglobin 23.1 pg (27.0-31.0); Mean Corpuscular Volume 77.0 fl (78.0-98.0); Platelet Count 638 10x3/uL (130-400); Red Blood Cell (RBC) Count 4.26 mill/uL (4.20-5.40); White Blood Cell (WBC) Count 11.3 10x3/uL (4.8-10.8)
[2025-07-23 02:41] LABS: Bicarbonate (HCO3v) 21.5 mmol/L (22.0-28.0); CO2 Tension (PvCO2) 27.9 mmHg (42.0-51.0); Calcium, Ionized 1.20 mmol/L (1.15-1.33); Chloride 109 mmol/L (98-107); Hemoglobin - Calc 11.6 g/dL (12.0-16.0); Potassium 3.7 mmol/L (3.5-5.1); Sodium 139 mmol/L (138-145); T. Carbon Dioxide 22.3 mmol/L (22.0-28.0); vO2 Saturation-calc 99.8 % (60.0-85.0)
[2025-07-23 02:43] LABS: BHCG - Serum Negative (NEGATIVE); Pregs Control Background? CLEAR/WHITE (CLR/WHITE); Pregs Control Bar Appear? YES (CONTROL BAR)
[2025-07-23 02:50] LABS: Polychromasia SLIGHT = 2-3 cells (100X) (0-2/hpf)
[2025-07-23 02:52] LABS: Platelet Adequacy Comment Appears Increased
[2025-07-23 02:54] LABS: Cocaine Metabolite Screen Negative (Negative); THC/Cannabinoid Screen PRELIM POSITIVE (Negative); Tricyclic Screen Negative (Negative)
[2025-07-23 02:58] LABS: Bacteria/HPF 1+ HPF (None Seen); CAUTI Indications for Culture Acute Hematuria; Glucose, Urine (Dipstick) Negative (Negative); Leukocyte Negative (Negative); Protein, Urine (Dipstick) > or equal to 300 mg/dL (Neg-Trace); Specific Gravity, Urine Greater/Equal 1.030 (1.005-1.030)
[2025-07-23 02:59] LABS: Urine Culture Reflex No No
== END 2025-07-23 02:40 | disposition left against medical advice (07) ==
LOC: MADERS 02:10
DX: Z53.20 Procedure and treatment not carried out because of patient's decision for unspecified reasons (principal); F17.210 Nicotine dependence, cigarettes, uncomplicated
CPT/HCPCS: 80306; 81001; 82330; 82435; 82803; 84132; 84295; 84703; 85025; 99282

== ENCOUNTER 2025-07-24 07:29 | Emergency (ER) | payer OTHER ==
[2025-07-24] MEDS ORDERED: Ketorolac Tromethamine 30 MG (1 mL) VIAL ONE (08:07)
[2025-07-24] MEDS ORDERED: Ondansetron PF 4 MG/2 ML Vial ONE (08:07)
[2025-07-24 08:26] LABS: BHCG - Serum Negative (NEGATIVE)
[2025-07-24 08:27] LABS: Pregs Control Background? CLEAR/WHITE (CLR/WHITE); Pregs Control Bar Appear? YES (CONTROL BAR)
[2025-07-24 08:34] LABS: ALT (SGPT) 25 U/L (Less than 34); AST (SGOT) 51 U/L (11-34); Albumin 4.9 g/dL (3.1-4.5); Alkaline Phosphatase 64 U/L (40-110); Anion Gap 20 mmol/L (10-20); BUN (Urea Nitrogen) 29 mg/dL (7.0-18.7); Bilirubin, Total 0.8 mg/dL (0.3-1.2); Calc. Creatinine Clearance 0 mL/min (70-130); Calcium 10.6 mg/dL (7.8-10.44); Carbon Dioxide 18 mmol/L (22-29); Chloride 101 mmol/L (98-107); Globulin 4.3 g/dL (2.4-3.5); Glucose 122 mg/dL (70-105); Lipase 11 U/L (8-78); Potassium 3.7 mmol/L (3.5-5.1); Sodium 135 mmol/L (136-145)
[2025-07-24 08:45] LABS: Hematocrit 35.3 % (36.0-47.0); Hemoglobin 10.5 g/dL (12.0-16.0); Mean Corpuscular Hemoglobin 23.2 pg (27.0-31.0); Mean Corpuscular Volume 77.9 fl (78.0-98.0); Platelet Count 666 10x3/uL (130-400); Red Blood Cell (RBC) Count 4.53 mill/uL (4.20-5.40); White Blood Cell (WBC) Count 11.9 10x3/uL (4.8-10.8)
[2025-07-24 08:51] LABS: MDiff Complete? YES; Manual Diff?? YES
[2025-07-24 08:52] LABS: Anisocytosis SLIGHT = 6-15 cells (100X) (0-5/hpf); Platelet Adequacy Comment Appears Increased
[2025-07-24] MEDS ORDERED: Iopamidol 370 76% 100 ML VIAL ONE (09:00)
[2025-07-24 10:37] LABS: Glucose, Urine (Dipstick) Negative (Negative); Leukocyte Negative (Negative); Protein, Urine (Dipstick) 30 mg/dL (Neg-Trace); Specific Gravity, Urine 1.025 (1.005-1.030)
[2025-07-24 10:46] LABS: CAUTI Indications for Culture Acute Hematuria; RBC/HPF 0-3 HPF (0-3); WBC/HPF 0-3 HPF (0-3); Yeast-Budding Rare HPF (None Seen)
[2025-07-24 10:51] LABS: Urine Culture Reflex No No
[2025-07-24 10:55] LABS: Cocaine Metabolite Screen Negative (Negative); THC/Cannabinoid Screen PRELIM POSITIVE (Negative); Tricyclic Screen Negative (Negative)
== END 2025-07-24 11:17 | disposition home or self-care (01) ==
LOC: MADERS 07:29
DX: R10.84 Generalized abdominal pain (principal); R11.2 Nausea with vomiting, unspecified; D25.9 Leiomyoma of uterus, unspecified; F17.210 Nicotine dependence, cigarettes, uncomplicated
CPT/HCPCS: 51701; 74177; 80053; 80306; 80307; 81001; 83690; 84703; 85025; 96361; 96374; 96375; J1630; J1885; J7030; Q9967